=== PATIENT | female | born 1940 | race Caucasian/White ===

== ENCOUNTER 2016-07-29 07:26 | Day surgery (SDC) | payer MEDICARE ==
[2016-07-28 08:54] VITALS: BMI 48.2
[2016-07-29 07:52] VITALS: RESP 16; TEMP 97.9
[2016-07-29] MEDS ORDERED: LACTATED RINGERS 1,000 ML IV ONE (08:10)
[2016-07-29] MEDS ORDERED: LIDOCAINE 1% 20 ML VIAL (10MG/ML) FOR IV START INTRADERMA ONE (08:12)
[2016-07-29 08:17] LABS: Glucose,Whole Blood 193 mg/dL (75-99)
[2016-07-29] MEDS ORDERED: PROPOFOL 10 MG/ML 20 ML VIAL IV ONE (08:54)
[2016-07-29] MEDS ORDERED: fentaNYL (PF) 50 MCG/ML 2 ML AMP ONE (08:54)
[2016-07-29] MEDS ORDERED: LIDOCAINE 1% INJ 10MG/ML (20 ML MDV) ONE (08:54)
--- NOTE | 2016-07-29 09:27 | P.PCN ---
Date of Procedure: 07/29/16 Procedure(s) Performed: Procedure: Colonoscopy and polypectomy. Preoperative diagnosis: History of colon cancer and intermittent rectal bleeding. Postoperative diagnosis: 1. S/P right hemicolectomy for colon cancer with no evidence of recurrence at the anastomotic site. 2. Multiple small polyps snared but no large polyps or cancer. 3. Sigmoid diverticulosis with no evidence of acute diverticulitis or strictures. 4. Low-grade internal hemorrhoids without bleeding at the time of this exam. Preparation: HalfLytely prep. Sedation: Was provided by anesthesia. Brief clinical history: The patient is a 75-year-old female who was diagnosed with colon cancer in August of last year and underwent right hemicolectomy and did not require any additional therapy. The patient had intermittent bleeding per rectum since that time and frequent bowel movements. This evaluation is for screening for neoplasia, especially, since her preparation last year that was less than ideal and there were small/diminutive polyps that could not be addressed. Procedure: With the patient on her left lateral decubitus position and after informed consent and adequate sedation, the perianal area was inspected and it did not show any fissures or fistulas. There were no masses felt on digital rectal examination. The Olympus CFQ 160L video colonoscope was then inserted in the rectum and the usual fashion and advanced to the anastomotic site on the right colon. The patient had prior right hemicolectomy and there was no evidence of recurrence at the anastomotic site. There were 3 small polyps noted in the transverse colon which I snared and retrieved by suction and there was one small polyp in the distal sigmoid which was snared and retrieved by suction as well. There were no large polyps or cancer. Several diverticular orifices were seen scattered in the sigmoid with no evidence of acute diverticulitis or strictures. I retroflexed endoscope in the rectum before the endoscope was withdrawn. Low-grade internal hemorrhoids were noted but there was no evidence of bleeding. The patient tolerated the procedure well. Plan: The patient was reassured. Discussed dietary measures and local care for hemorrhoids. I anticipate repeating this exam in 2-3 years. I will keep you updated on her progress.
[2016-07-29 09:36] LABS: Glucose,Whole Blood 153 mg/dL (75-99)
[2016-07-29 09:39] VITALS: BP 127/65; PULSE 62
== END 2016-07-29 10:42 | disposition home or self-care (01) ==
LOC: ORWHC2ENDO 07:26
DX: Z12.11 Encounter for screening for malignant neoplasm of colon (principal); Z85.038 Personal history of other malignant neoplasm of large intestine; Z90.49 Acquired absence of other specified parts of digestive tract; D12.3 Benign neoplasm of transverse colon; D12.5 Benign neoplasm of sigmoid colon; K57.30 Diverticulosis of large intestine without perforation or abscess without bleeding; K64.8 Other hemorrhoids; Z87.19 Personal history of other diseases of the digestive system; E11.9 Type 2 diabetes mellitus without complications; I10 Essential (primary) hypertension; E78.5 Hyperlipidemia, unspecified; Z79.82 Long term (current) use of aspirin; Z79.4 Long term (current) use of insulin; Z79.84 Long term (current) use of oral hypoglycemic drugs; Z79.899 Other long term (current) drug therapy
CPT/HCPCS: 88305; 45385; J2001; J3010; J2704; 99153

== ENCOUNTER 2017-09-01 08:58 | Day surgery (SDC) | payer MEDICARE ==
[2017-08-29 12:27] VITALS: BMI 49.0
[~2017-09-01 08:58] MED LIST: LACTATED RINGERS 1,000 ML IV SCH; LIDOCAINE 1% 20 ML VIAL (10MG/ML) FOR IV START INTRADERMA PRN
[2017-09-01 09:14] VITALS: TEMP 97.6
[2017-09-01 09:24] LABS: Glucose,Whole Blood 130 mg/dL (75-99)
[2017-09-01] MEDS ORDERED: PROPOFOL 10 MG/ML 20 ML VIAL IV ONE (10:05)
[2017-09-01] MEDS ORDERED: LIDOCAINE 1% INJ 10MG/ML (20 ML MDV) ONE (10:05)
[2017-09-01] MEDS ORDERED: LACTATED RINGERS 1,000 ML IV ONE (10:05)
[2017-09-01 10:44] LABS: Glucose,Whole Blood 117 mg/dL (75-99)
--- NOTE | 2017-09-01 10:44 | P.PCN ---
Date of Procedure: 09/01/17 Procedure(s) Performed: Procedure: Colonoscopy. Preoperative diagnosis: History of colon cancer and polyps. Postoperative diagnosis: 1. S/P right hemicolectomy for colon cancer with no evidence of recurrence at the anastomotic site. 2. Sigmoid diverticulosis with no evidence of acute diverticulitis or strictures. Preparation: HalfLytely prep. Sedation: Was provided by anesthesia. Brief clinical history: The patient is a 76-year-old female who was diagnosed with colon cancer in August of 2015 and underwent right hemicolectomy and did not require any additional therapy. The patient had intermittent bleeding per rectum after that and diarrhea and his colonoscopy in July 2016 revealed sigmoid diverticulosis and small polyps but no evidence of cancer. Had hemorrhoids which were not bleeding. This evaluation is for screening for neoplasia. She has been doing well without diarrhea or bleeding. Procedure: With the patient on her left lateral decubitus position and after informed consent and adequate sedation, the perianal area was inspected and it did not show any fissures or fistulas. There were no masses felt on digital rectal examination. The Olympus CFQ 160L video colonoscope was then inserted in the rectum in the usual fashion and advanced to the anastomotic site on the right colon. The patient had prior right hemicolectomy and there was no evidence of recurrence at the anastomotic site. There were no polyps seen or cancer. Several diverticular orifices were seen scattered in the sigmoid with no evidence of acute diverticulitis or strictures. I retroflexed the endoscope in the rectum before the endoscope was withdrawn. The patient tolerated the procedure well. Plan: The patient was reassured. Discussed dietary measures. I anticipate repeating this exam in 3 years. I will keep you updated on her progress.
[2017-09-01 10:53] VITALS: BP 127/55; PULSE 72; RESP 18
== END 2017-09-01 11:25 | disposition home or self-care (01) ==
LOC: ORWHC2ENDO 08:58
DX: Z12.11 Encounter for screening for malignant neoplasm of colon (principal); K57.30 Diverticulosis of large intestine without perforation or abscess without bleeding; E11.9 Type 2 diabetes mellitus without complications; I10 Essential (primary) hypertension; E78.5 Hyperlipidemia, unspecified; J45.909 Unspecified asthma, uncomplicated; I48.91 Unspecified atrial fibrillation; G47.33 Obstructive sleep apnea (adult) (pediatric); Z85.038 Personal history of other malignant neoplasm of large intestine; Z79.82 Long term (current) use of aspirin; Z79.4 Long term (current) use of insulin; Z86.010 Personal history of colon polyps; Z90.49 Acquired absence of other specified parts of digestive tract; Z79.899 Other long term (current) drug therapy; Z98.0 Intestinal bypass and anastomosis status
CPT/HCPCS: J2001; J2704; G0105

== ENCOUNTER 2020-10-06 08:55 | Day surgery (SDC) | payer MEDICARE ==
[2020-10-02 15:36] VITALS: BMI 55.6
[~2020-10-06 08:55] MED LIST changes: -LACTATED RINGERS 1,000 ML IV SCH; +LIDOCAINE 1% (10MG/ML) FOR IV START INTRADERMA PRN; -LIDOCAINE 1% 20 ML VIAL (10MG/ML) FOR IV START INTRADERMA PRN
[2020-10-06] MEDS: LACTATED RINGERS 1,000 ML IV SCH ×2 (09:30→10:33)
[2020-10-06 09:45] LABS: Glucose,Whole Blood 99 mg/dL (75-99)
[2020-10-06 09:51] VITALS: TEMP 97.2
[2020-10-06] MEDS ORDERED: PROPOFOL 10 MG/ML 20 ML VIAL IV ONE (10:34)
--- NOTE | 2020-10-06 10:55 | P.PCN ---
Date of Procedure: 10/06/20 Procedure(s) Performed: BRIEF HISTORY: Patient is a 80-year-old pleasant white female scheduled for an elective colonoscopy as a part of surveillance of prior history of colon cancer diagnosed in August 2015 and is status post right hemicolectomy. Her last colonoscopy was 3 years ago. PROCEDURE PERFORMED: Colonoscopy biopsy and snare polypectomy. PREOPERATIVE DIAGNOSIS: History of colon cancer in 2016. IV sedation per Anesthesia. PROCEDURE: After informed consent was obtained, the patient, was brought into the endoscopy unit. IV sedation was administered by Anesthesia under continuous monitoring. Digital rectal examination was normal. Initially the Olympus CF-160 flexible video colonoscope was then inserted in the rectum, gradually advanced into the right colon without any difficulty. The ileocolonic anastomosis was visualized and appeared normal. Mucosa of the transverse colon, appeared normal. In the descending colon there was a 2 mm polyp that was removed by cold biopsy. In the sigmoid colon there was a 5 mm and 6 mm polyps removed by snare polypectomy. Scattered left sided diverticulosis seen. Rest of the descending colon, sigmoid colon, and rectum appeared normal. Retroflexion was performed in the rectum and no lesions were seen. The patient tolerated the procedure well. IMPRESSION: 2 mm descending colon polyp status post removal by cold biopsy 5 mm and 6 mm sigmoid colon polyp status post snare polypectomy Scattered sigmoidal diverticulosis RECOMMENDATIONS: Findings of this examination were discussed with the patient as well as a family. She was advised to follow with the biopsy results. If the biopsies show adenoma she can have a repeat colonoscopy in 3 years.
[2020-10-06 11:21] VITALS: BP 138/74; PULSE 90; RESP 20
== END 2020-10-06 11:50 | disposition home or self-care (01) ==
LOC: ORWHC2ENDO 08:55
PROVIDERS: ATTEND Internal Medicine Gastroenterology
DX: Z12.11 Encounter for screening for malignant neoplasm of colon (principal); D12.4 Benign neoplasm of descending colon; D12.5 Benign neoplasm of sigmoid colon; K57.30 Diverticulosis of large intestine without perforation or abscess without bleeding; Z85.038 Personal history of other malignant neoplasm of large intestine; E11.9 Type 2 diabetes mellitus without complications; K08.89 Other specified disorders of teeth and supporting structures; I11.0 Hypertensive heart disease with heart failure; I50.9 Heart failure, unspecified; I48.91 Unspecified atrial fibrillation; E78.5 Hyperlipidemia, unspecified; J45.909 Unspecified asthma, uncomplicated; G47.33 Obstructive sleep apnea (adult) (pediatric); F41.9 Anxiety disorder, unspecified; F32.9 Major depressive disorder, single episode, unspecified; E66.9 Obesity, unspecified; Z98.0 Intestinal bypass and anastomosis status; Z79.899 Other long term (current) drug therapy; Z79.82 Long term (current) use of aspirin; Z90.49 Acquired absence of other specified parts of digestive tract; Z88.8 Allergy status to other drugs, medicaments and biological substances; Z87.891 Personal history of nicotine dependence; Z79.4 Long term (current) use of insulin; Z68.43 Body mass index [BMI] 50.0-59.9, adult
CPT/HCPCS: 88305; 45380; 45385; J2704

== ENCOUNTER 2020-12-04 18:35 | Inpatient (IN) | payer MEDICARE ==
--- NOTE | 2020-12-04 19:09 | ED ---
General Adult HPI - General Chief complaint: Shortness of Breath Stated complaint: sob Time Seen by Provider: 12/04/20 18:49 Source: patient, RN notes reviewed, old records reviewed Mode of arrival: ambulatory Limitations: no limitations - History of Present Illness Initial comments: 80-year-old female with history of CHF, chronic kidney disease presenting with weight gain, increased dyspnea. Symptoms have progressed over the past one month, patient was admitted at an outside hospital with CHF and chronic kidney disease. She is currently on Bumex. She's had 8-10 pound weight gain recently and his had increased lower extremity edema as well as increased dyspnea. No fevers. Minimal central chest discomfort, no central chest pain. - Related Data Home Medications Medication Instructions Recorded Confirmed Aspirin [Adult Low Dose Aspirin EC] 81 mg PO DAILY 07/28/16 12/04/20 Atorvastatin [Lipitor] 20 mg PO DAILY 07/28/16 12/04/20 Losartan [Cozaar] 50 mg PO DAILY 07/28/16 12/04/20 sitaGLIPtin [Januvia] 50 mg PO DAILY 07/28/16 12/04/20 Amitriptyline HCl 25 mg PO HS 10/02/20 12/04/20 DULoxetine HCL [Cymbalta] 60 mg PO HS 10/02/20 12/04/20 Echinacea Root/Goldenseal Root 1 cap PO HS 10/02/20 12/04/20 [Echinac-Goldenseal 250-250 mg] Albuterol Sulfate [Ventolin HFA] 2 puff INHALATION RT-Q6H PRN 12/04/20 12/04/20 Bumetanide 2 mg PO DAILY 12/04/20 12/04/20 Folic Acid 0.8 mg PO HS 12/04/20 12/04/20 Glucos Sul 2Kcl/MSM/Chond/C/Mn 1 cap PO HS 12/04/20 12/04/20 [Glucosamine Chondroitin Cap] Insulin NPH Hum/Reg Insulin Hm 48 units SQ HS 12/04/20 12/04/20 [Novolin 70-30 Flexpen] Insulin NPH Hum/Reg Insulin Hm 66 units SQ DAILY 12/04/20 12/04/20 [Novolin 70-30 Flexpen] Oxybutynin ER [Ditropan Xl] 15 mg PO DAILY 12/04/20 12/04/20 Qft-Zqlu-Ifoym Acid 1 cap PO HS 12/04/20 12/04/20 [-U Capsule (formulary)] Allergies Allergy/AdvReac Type Severity Reaction Status Date / Time beta blockers Allergy Hallucinati Uncoded 12/04/20 19:59 ons Review of Systems ROS Statement: Those systems with pertinent positive or pertinent negative responses have been documented in the HPI. ROS Other: All systems not noted in ROS Statement are negative. Past Medical History Past Medical History: Atrial Fibrillation, Asthma, Cancer, Heart Failure, Diabetes Mellitus, GI Bleed, Hyperlipidemia, Hypertension, Memory Impairment, Osteoarthritis (OA), Sleep Apnea/CPAP/BIPAP Additional Past Medical History / Comment(s): Hx chronic bronchitis, urinary incontinence, hx colon cancer 2017. Recently having blood in stools. "Prone to kidney infections". "Severe left leg pain, affects mobility, some pain in right leg as well." Experiences extrene dizziness when getting up, has had many falls ." No CPAP use. History of Any Multi-Drug Resistant Organisms: None Reported Past Surgical History: Appendectomy, Bowel Resection, Cholecystectomy Past Anesthesia/Blood Transfusion Reactions: Postoperative Nausea & Vomiting ( PONV) Additional Past Anesthesia/Blood Transfusion Reaction / Comment(s): Family hx PONV as well. Past Psychological History: Anxiety, Depression Smoking Status: Former smoker Past Alcohol Use History: None Reported Past Drug Use History: None Reported - Past Family History Daughter(s) Family Medical History: Cancer Additional Family Medical History / Comment(s): Breast cancer. Sister(s) Family Medical History: Cancer Additional Family Medical History / Comment(s): 1 sister had breast cancer and 1 sister had uterine cancer. General Exam Limitations: no limitations General appearance: alert, in distress Head exam: Present: atraumatic, normocephalic Eye exam: Present: normal appearance, PERRL ENT exam: Present: normal exam Neck exam: Present: normal inspection. Absent: tenderness, meningismus Respiratory exam: Present: respiratory distress, rales, decreased breath sounds Cardiovascular Exam: Present: regular rate, normal rhythm GI/Abdominal exam: Present: soft. Absent: distended, tenderness Extremities exam: Present: pedal edema Neurological exam: Present: alert, oriented X3, CN II-XII intact. Absent: motor sensory deficit Psychiatric exam: Present: normal affect, normal mood Skin exam: Present: warm, dry Course Vital Signs 12/04/20 12/04/20 12/04/20 18:41 19:11 21:44 Temperature 98.6 F Pulse Rate 74 71 Respiratory 22 21 16 Rate Blood Pressure 134/40 138/36 O2 Sat by Pulse 96 96 Oximetry EKG Findings - EKG Comments: EKG Findings:: EKG: Normal sinus rhythm, no ST segment elevation, rate of 78, NJ interval 192, QRS duration 70, QTC 435, no ST segment elevation. Medical Decision Making - Medical Decision Making 80-year-old female with worsening dyspnea, worsening lower extremity edema and fluid retention with weight gain. Patient has significant bilateral lower extremity edema. Case discussed with Dr. Freed who will admit both nephrology and cardiology placed on consult. - Lab Data Result diagrams: 12/04/20 19:13 12/04/20 19:13 Lab Results 12/04/20 12/04/20 12/04/20 Range/Units 19:13 19:13 19:13 WBC 6.4 (3.8-10.6) k/uL RBC 3.35 L (3.80-5.40) m/uL Hgb 11.5 (11.4-16.0) gm/dL Hct 33.0 L (34.0-46.0) % MCV 98.5 (80.0-100.0) fL MCH 34.2 (25.0-35.0) pg MCHC 34.8 (31.0-37.0) g/dL RDW 13.5 (11.5-15.5) % Plt Count 200 (150-450) k/uL MPV 6.7 Neutrophils % 71 % Lymphocytes % 17 % Monocytes % 6 % Eosinophils % 3 % Basophils % 1 % Neutrophils # 4.5 (1.3-7.7) k/uL Lymphocytes # 1.1 (1.0-4.8) k/uL Monocytes # 0.4 (0-1.0) k/uL Eosinophils # 0.2 (0-0.7) k/uL Basophils # 0.0 (0-0.2) k/uL PT 10.8 (9.0-12.0) sec INR 1.0 (<1.2) APTT 24.4 (22.0-30.0) sec Sodium 133 L (137-145) mmol/L Potassium 4.8 (3.5-5.1) mmol/L Chloride 96 L (98-107) mmol/L Carbon Dioxide 30 (22-30) mmol/L Anion Gap 7 mmol/L BUN 38 H (7-17) mg/dL Creatinine 1.42 H (0.52-1.04) mg/dL Est GFR (CKD-EPI)AfAm 41 (>60 ml/min/1.73 sqM) Est GFR (CKD-EPI)NonAf 36 (>60 ml/min/1.73 sqM) Glucose 190 H (74-99) mg/dL Calcium 9.2 (8.4-10.2) mg/dL Total Bilirubin 0.8 (0.2-1.3) mg/dL AST 77 H (14-36) U/L ALT 35 H (4-34) U/L Alkaline Phosphatase 118 (38-126) U/L Troponin I (0.000-0.034) ng/mL NT-Pro-B Natriuret Pep pg/mL Total Protein 7.6 (6.3-8.2) g/dL Albumin 3.8 (3.5-5.0) g/dL 12/04/20 12/04/20 Range/Units 19:13 19:19 WBC (3.8-10.6) k/uL RBC (3.80-5.40) m/uL Hgb (11.4-16.0) gm/dL Hct (34.0-46.0) % MCV (80.0-100.0) fL MCH (25.0-35.0) pg MCHC (31.0-37.0) g/dL RDW (11.5-15.5) % Plt Count (150-450) k/uL MPV Neutrophils % % Lymphocytes % % Monocytes % % Eosinophils % % Basophils % % Neutrophils # (1.3-7.7) k/uL Lymphocytes # (1.0-4.8) k/uL Monocytes # (0-1.0) k/uL Eosinophils # (0-0.7) k/uL Basophils # (0-0.2) k/uL PT (9.0-12.0) sec INR (<1.2) APTT (22.0-30.0) sec Sodium (137-145) mmol/L Potassium (3.5-5.1) mmol/L Chloride (98-107) mmol/L Carbon Dioxide (22-30) mmol/L Anion Gap mmol/L BUN (7-17) mg/dL Creatinine (0.52-1.04) mg/dL Est GFR (CKD-EPI)AfAm (>60 ml/min/1.73 sqM) Est GFR (CKD-EPI)NonAf (>60 ml/min/1.73 sqM) Glucose (74-99) mg/dL Calcium (8.4-10.2) mg/dL Total Bilirubin (0.2-1.3) mg/dL AST (14-36) U/L ALT (4-34) U/L Alkaline Phosphatase (38-126) U/L Troponin I <0.012 (0.000-0.034) ng/mL NT-Pro-B Natriuret Pep 431 pg/mL Total Protein (6.3-8.2) g/dL Albumin (3.5-5.0) g/dL Disposition Clinical Impression: Congestive heart failure, Fluid retention in legs, Chronic kidney disease Disposition: ADMITTED IP TO THIS [facility] Condition: Stable Is patient prescribed a controlled substance at d/c from ED?: No Referrals: Reynaldo Nielson DO [Primary Care Provider] - 1-2 days Decision to Admit Reason: Admit from EC Decision Date: 12/04/20 Decision Time: 22:03
[2020-12-04 19:17] LABS: Basophils % (A) 1 %; Eosinophils # (A) 0.2 k/uL (0-0.7); Eosinophils % (A) 3 %; HGB 11.5 gm/dL (11.4-16.0); Lymphocytes # (A) 1.1 k/uL (1.0-4.8); Lymphocytes % (A) 17 %; MCH 34.2 pg (25.0-35.0); MCHC 34.8 g/dL (31.0-37.0); MCV 98.5 fL (80.0-100.0); Mean Platelet Volume 6.7; Monocytes # (A) 0.4 k/uL (0-1.0); Monocytes % (A) 6 %; Neutrophils # (A) 4.5 k/uL (1.3-7.7); Neutrophils % (A) 71 %; Platelet Count 200 k/uL (150-450); RBC 3.35 m/uL (3.80-5.40); RDW 13.5 % (11.5-15.5); WBC 6.4 k/uL (3.8-10.6)
[2020-12-04 19:25] LABS: Partial Thromboplastin Time 24.4 sec (22.0-30.0); Prothrombin Time 10.8 sec (9.0-12.0)
[2020-12-04 19:28] LABS: Albumin 3.8 g/dL (3.5-5.0); Calcium 9.2 mg/dL (8.4-10.2); Potassium 4.8 mmol/L (3.5-5.1); Total Bilirubin 0.8 mg/dL (0.2-1.3); Total Protein 7.6 g/dL (6.3-8.2)
--- NOTE | 2020-12-04 20:00 | XR ---
EXAMINATION: XR chest 2V DATE AND TIME: 12/04/2020 7:34 PM CLINICAL INDICATION: PHH; difficulty breathing TECHNIQUE: Departmental protocol COMPARISON: None FINDINGS: The overlying soft tissues are prominent. The lungs appear to be clear. The pleural spaces are negative. The cardiac silhouette is not enlarged. The remainder of the mediastinal silhouette is unremarkable. The skeletal structures and soft tissues are negative for acute findings. IMPRESSION: No definite acute radiographic process.
[2020-12-04] MEDS ORDERED: FUROSEMIDE 10 MG/ML 10 ML VIAL IV STA (20:22)
[2020-12-04] MEDS ORDERED: NALOXONE 0.4 MG/ML 1 ML VIAL IV PRN (22:00)
[2020-12-04 22:06] LABS: Appearance,Urine Cloudy (Clear); Bacteria,Urine Rare /hpf; Bilirubin,Urine Negative (Negative); Blood,Urine Negative (Negative); Color,Urine Yellow; Glucose,Urine (UA) Negative (Negative); Ketones,Urine Negative (Negative); Leukocyte Esterase,Urine Moderate (Negative); Nitrite,Urine Negative (Negative); Protein,Urine Negative (Negative); RBC,Urine <1 /hpf (0-5); Specific Gravity,Urine 1.013 (1.001-1.035); Squamous Epithelial Cell,Urine 6 /hpf (0-4); Urobilinogen,Urine <2.0 mg/dL (<2.0); WBC,Urine 10 /hpf (0-5)
[2020-12-04 22:40] LABS: Glucose,Whole Blood 198 mg/dL (75-99)
[2020-12-04] MEDS ORDERED: AMITRIPTYLINE HCL 25 MG TAB PO SCH (22:45)
[2020-12-05] MEDS: DULoxetine HCL 60 MG CAPSULE.DR PO SCH ×2 (00:01→20:40)
[2020-12-05] MEDS: AMITRIPTYLINE HCL 25 MG TAB PO SCH ×2 (00:02→20:39)
[2020-12-05] MEDS: ASPIRIN 81 MG PO SCH (07:46)
[2020-12-05] MEDS: INSULIN ASPART (NovoLOG) 100 UNIT/ML VIAL SQ SCH ×4 (07:46→20:39)
[2020-12-05] MEDS: LOSARTAN 50 MG TAB PO SCH (07:46)
[2020-12-05] MEDS: ATORVASTATIN 20 MG TAB PO SCH (07:46)
[2020-12-05 08:02] LABS: Glucose,Whole Blood 188 mg/dL (75-99)
--- NOTE | 2020-12-05 11:30 | P.NPCON ---
History of Present Illness - Reason for Consult acute renal failure, chronic renal failure - History of Present Illness Reason for consultation: Acute kidney injury on chronic kidney disease History of present illness: Patient is a 80-year-old female seen in renal consultation for acute kidney injury on chronic kidney disease. Patient's creatinine in October and November has been in the range of 1.4-1.7. It is 1.42 today. Patient presented to the hospital with worsening shortness of breath as well as edema. Patient has gained about 8 pounds in the last 1 week. She admits to edema in her lower extremity. Patient states her right lower extremity was weeping. She denies any fever or chills. Denies use of nonsteroidals. No vomiting or diarrhea. Oral intake has been fair. Has been voiding. No hematuria or dysuria. She does have history of diabetes. Denies family history of renal disease. No history of coronary artery disease. Urinalysis is benign. Hemodynamically stable. No chest pain. Vital signs are stable. General: The patient appeared well nourished and normally developed. HEENT: Head exam is unremarkable. Neck is without jugular venous distension. LUNGS: Breath sounds decreased. HEART: Rate and Rhythm are regular. ABDOMEN: Soft, obese. EXTREMITITES: 1-2+ edema with chronic changes noted. Past Medical History Past Medical History: Atrial Fibrillation, Asthma, Cancer, Heart Failure, Diabetes Mellitus, GI Bleed, Hyperlipidemia, Hypertension, Memory Impairment, Osteoarthritis (OA), Sleep Apnea/CPAP/BIPAP Additional Past Medical History / Comment(s): Hx chronic bronchitis, urinary incontinence, hx colon cancer 2017. Recently having blood in stools. "Prone to kidney infections". "Severe left leg pain, affects mobility, some pain in right leg as well." Experiences extrene dizziness when getting up, has had many falls." No CPAP use. History of Any Multi-Drug Resistant Organisms: None Reported Past Surgical History: Appendectomy, Bowel Resection, Cholecystectomy Past Anesthesia/Blood Transfusion Reactions: Postoperative Nausea & Vomiting (PONV) Additional Past Anesthesia/Blood Transfusion Reaction / Comment(s): Family hx PONV as well. Past Psychological History: Anxiety, Depression Smoking Status: Former smoker Past Alcohol Use History: None Reported Past Drug Use History: None Reported - Past Family History Daughter(s) Family Medical History: Cancer Additional Family Medical History / Comment(s): Breast cancer. Sister(s) Family Medical History: Cancer Additional Family Medical History / Comment(s): 1 sister had breast cancer and 1 sister had uterine cancer. Medications and Allergies Home Medications Medication Instructions Recorded Confirmed Type Aspirin [Adult Low Dose Aspirin EC] 81 mg PO DAILY 07/28/16 12/04/20 History Atorvastatin [Lipitor] 20 mg PO DAILY 07/28/16 12/04/20 History Losartan [Cozaar] 50 mg PO DAILY 07/28/16 12/04/20 History sitaGLIPtin [Januvia] 50 mg PO DAILY 07/28/16 12/04/20 History Amitriptyline HCl 25 mg PO HS 10/02/20 12/04/20 History DULoxetine HCL [Cymbalta] 60 mg PO HS 10/02/20 12/04/20 History Echinacea Root/Goldenseal Root 1 cap PO HS 10/02/20 12/04/20 History [Echinac-Goldenseal 250-250 mg] Albuterol Sulfate [Ventolin HFA] 2 puff INHALATION RT-Q6H PRN 12/04/20 12/04/20 History Bumetanide 2 mg PO DAILY 12/04/20 12/04/20 History Folic Acid 0.8 mg PO HS 12/04/20 12/04/20 History Glucos Sul 2Kcl/MSM/Chond/C/Mn 1 cap PO HS 12/04/20 12/04/20 History [Glucosamine Chondroitin Cap] Insulin NPH Hum/Reg Insulin Hm 48 units SQ HS 12/04/20 12/04/20 History [Novolin 70-30 Flexpen] Insulin NPH Hum/Reg Insulin Hm 66 units SQ DAILY 12/04/20 12/04/20 History [Novolin 70-30 Flexpen] Oxybutynin ER [Ditropan Xl] 15 mg PO DAILY 12/04/20 12/04/20 History Flu-Styr-Mkcsp Acid 1 cap PO HS 12/04/20 12/04/20 History [-U Capsule (formulary)] Allergies Allergy/AdvReac Type Severity Reaction Status Date / Time beta blockers Allergy Hallucinati Uncoded 12/04/20 19:59 ons Physical Exam Vitals: Vital Signs Temp Pulse Resp BP Pulse Ox 12/05/20 07:34 97.9 F 80 20 137/46 93 L 12/05/20 01:19 78 18 135/48 96 12/04/20 21:44 71 16 138/36 96 12/04/20 19:11 21 12/04/20 18:41 98.6 F 74 22 134/40 96 Intake and Output 12/04/20 12/05/20 12/05/20 22:59 06:59 14:59 Other: Weight 127.459 kg Results - Lab Results Most recent lab results Calcium 9.2 mg/dL (8.4-10.2) 12/04/20 19:13 12/04/20 19:13 12/04/20 19:13 Assessment and Plan Plan: Assessment: 1. HOSEA vs CKD - cr 1.4-1.7 in october/november 2020. UA benign. 2. Volume overload. 3. Diabetes. 4. Benign hypertension. Stable. Plan: Add IV lasix 40 mg bid. Check renal ultrasound. Avoid nephrotoxins. Low salt diet. Continue to monitor renal function and UO. Cardiology reccs rianna. Thank you for the consultation. I will continue to follow the patient with you during her hospital stay.
[2020-12-05 11:41] LABS: Glucose,Whole Blood 183 mg/dL (75-99)
[2020-12-05] MEDS ORDERED: FUROSEMIDE 10 MG/ML 4 ML VIAL IV STA (12:02)
--- NOTE | 2020-12-05 13:03 | US ---
EXAMINATION TYPE: US kidneys/renal and bladder DATE OF EXAM: 12/05/2020 COMPARISON: NONE CLINICAL HISTORY: yahaira. EXAM MEASUREMENTS: Right Kidney: 9.4 x 4.0 x 4.8 cm Left Kidney: 10.3 x 4.8 x 4.9 cm Morbidly obese patient, technically difficult study. Right Kidney: No hydronephrosis or masses seen, lobular contour Left Kidney: No hydronephrosis or masses seen Bladder: Limited. Not fully distended no nephrolithiasis. IMPRESSION: 1. Cortical thinning correlate for chronic medical renal disease.:
[2020-12-05] MEDS ORDERED: ALBUTEROL HFA INHALER INHALATION PRN (14:31)
[2020-12-05 17:25] LABS: Glucose,Whole Blood 169 mg/dL (75-99)
--- NOTE | 2020-12-05 18:02 | P.HPIM ---
History of Present Illness H&P Date: 12/05/20 Chief Complaint: Shortness of breath 80-year-old female with history of CHF, chronic kidney disease presenting with weight gain, increased dyspnea. Symptoms have progressed over the past one month, patient was admitted at an outside hospital with CHF and chronic kidney disease. She is currently on Bumex. She's had 8-10 pound weight gain recently and his had increased lower extremity edema as well as increased dyspnea. No fevers. Minimal central chest discomfort, no central chest pain. Workup in ED including an EKG reveals normal sinus rhythm, no ST segment elevation; labs reveal sodium of 133, potassium 4.8, BUN 38 with creatinine of 1.4 to and glucose 190; AST/ALT 77/35 and BNP of 431 Patient is admitted for further evaluation of CHF and acute on chronic kidney disease Review of Systems - Constitutional General appearance: Present: average body habitus, cooperative, no acute distress - EENT Eyes: Present: anicteric sclerae, EOMI, PERRLA, normal appearance ENT: Present: hearing grossly normal, normal oropharynx Ears: bilateral: normal - Neck Neck: Present: normal ROM. Absent: lymphadenopathy, rigidity, thyromegaly Carotids: negative: bruit present Thyroid: bilateral: normal size, negative: enlarged, nodule - Respiratory Respiratory: bilateral: CTA, negative: rales, rhonchi, wheezing - Cardiovascular Rhythm: regular Heart sounds: normal: S1, S2 Abnormal Heart Sounds: Absent: systolic murmur, diastolic murmur - Gastrointestinal General gastrointestinal: Present: normal bowel sounds, soft. Absent: distended, organomegaly, tenderness - Genitourinary Genitourinary Comment(s): deferred - Integumentary Integumentary: Present: normal turgor. Absent: jaundiced, rash, ulcer - Neurologic Neurologic: Present: CNII-XII intact. Absent: focal deficits - Musculoskeletal Musculoskeletal: Present: gait normal, strength equal bilaterally - Psychiatric Psychiatric: Present: A&O x's 3, appropriate affect, intact judgment & insight Past Medical History Past Medical History: Atrial Fibrillation, Asthma, Cancer, Heart Failure, Diabetes Mellitus, GI Bleed, Hyperlipidemia, Hypertension, Memory Impairment, Osteoarthritis (OA), Renal Disease, Skin Disorder, Sleep Apnea/CPAP/BIPAP Additional Past Medical History / Comment(s): Pt recently admitted to [facility] with R lower leg cellulitis, CKD stge IV and CHF. Other hx: Afib once associated with beta josafat, IDDM type II, CKD III-IV, "prone to" polynephritis, UTIs, colon cancer with resection, past pneumonias, chronic bronchitits, lower GI bleed, colon polyps, diverticular disease, small hiatal hernia, bilateral leg pain especially L leg, bilateral lower leg/pedal edema, gait dysturbance, vertigo, FALLS, LACEY-no device, "lump" present L lower leg, History of Any Multi-Drug Resistant Organisms: None Reported Past Surgical History: Appendectomy, Bowel Resection, Breast Surgery, Cholecystectomy Additional Past Surgical History / Comment(s): EGD, colonoscopies/polypectomies, L breast benign biopsy. Past Anesthesia/Blood Transfusion Reactions: Postoperative Nausea & Vomiting (PONV) Additional Past Anesthesia/Blood Transfusion Reaction / Comment(s): Family hx PONV as well. Smoking Status: Former smoker - Past Family History Daughter(s) Family Medical History: Cancer Additional Family Medical History / Comment(s): Breast cancer. Sister(s) Family Medical History: Cancer Additional Family Medical History / Comment(s): 1 sister had breast cancer and 1 sister had uterine cancer. Mother Family Medical History: Diabetes Mellitus Additional Family Medical History / Comment(s): heart problems Father Additional Family Medical History / Comment(s): heart problems Medications and Allergies Home Medications Medication Instructions Recorded Confirmed Type Aspirin [Adult Low Dose Aspirin EC] 81 mg PO DAILY 07/28/16 12/04/20 History Atorvastatin [Lipitor] 20 mg PO DAILY 07/28/16 12/04/20 History Losartan [Cozaar] 50 mg PO DAILY 07/28/16 12/04/20 History sitaGLIPtin [Januvia] 50 mg PO DAILY 07/28/16 12/04/20 History DULoxetine HCL [Cymbalta] 60 mg PO HS 10/02/20 12/04/20 History Echinacea Root/Goldenseal Root 1 cap PO HS 10/02/20 12/04/20 History [Echinac-Goldenseal 250-250 mg] RX: Amitriptyline HCl 25 mg PO HS 10/02/20 12/04/20 History Albuterol Sulfate [Ventolin HFA] 2 puff INHALATION RT-Q6H PRN 12/04/20 12/04/20 History Glucos Sul 2Kcl/MSM/Chond/C/Mn 1 cap PO HS 12/04/20 12/04/20 History [Glucosamine Chondroitin Cap] Insulin NPH Hum/Reg Insulin Hm 48 units SQ HS 12/04/20 12/04/20 History [Novolin 70-30 Flexpen] Insulin NPH Hum/Reg Insulin Hm 66 units SQ DAILY 12/04/20 12/04/20 History [Novolin 70-30 Flexpen] Oxybutynin ER [Ditropan Xl] 15 mg PO DAILY 12/04/20 12/04/20 History Svp-Wdyb-Tqguh Acid 1 cap PO HS 12/04/20 12/04/20 History [-U Capsule (formulary)] RX: Bumetanide 2 mg PO DAILY 12/04/20 12/04/20 History RX: Folic Acid 0.8 mg PO HS 12/04/20 12/04/20 History Allergies Allergy/AdvReac Type Severity Reaction Status Date / Time beta blockers Allergy Hallucinati Uncoded 12/04/20 19:59 ons Physical Exam Vitals: Vital Signs Temp Pulse Resp BP Pulse Ox 12/05/20 12:11 89 16 141/53 97 12/05/20 07:34 97.9 F 80 20 137/46 93 L 12/05/20 01:19 78 18 135/48 96 12/04/20 21:44 71 16 138/36 96 12/04/20 19:11 21 12/04/20 18:41 98.6 F 74 22 134/40 96 Intake and Output 12/04/20 12/05/20 12/05/20 22:59 06:59 14:59 Other: Weight 127.459 kg 127.459 kg Results CBC & Chem 7: 12/04/20 19:13 12/04/20 19:13 Labs: Abnormal Lab Results - Last 24 Hours (Table) 12/04/20 12/04/20 12/04/20 Range/Units 19:13 19:13 21:52 RBC 3.35 L (3.80-5.40) m/uL Hct 33.0 L (34.0-46.0) % Sodium 133 L (137-145) mmol/L Chloride 96 L (98-107) mmol/L BUN 38 H (7-17) mg/dL Creatinine 1.42 H (0.52-1.04) mg/dL Glucose 190 H (74-99) mg/dL POC Glucose (mg/dL) (75-99) mg/dL AST 77 H (14-36) U/L ALT 35 H (4-34) U/L Urine Appearance Cloudy H (Clear) Ur Leukocyte Esterase Moderate H (Negative) Urine WBC 10 H (0-5) /hpf Ur Squamous Epith Cells 6 H (0-4) /hpf Urine Bacteria Rare H (None) /hpf 12/04/20 12/05/20 12/05/20 Range/Units 22:39 07:42 11:33 RBC (3.80-5.40) m/uL Hct (34.0-46.0) % Sodium (137-145) mmol/L Chloride (98-107) mmol/L BUN (7-17) mg/dL Creatinine (0.52-1.04) mg/dL Glucose (74-99) mg/dL POC Glucose (mg/dL) 198 H 188 H 183 H (75-99) mg/dL AST (14-36) U/L ALT (4-34) U/L Urine Appearance (Clear) Ur Leukocyte Esterase (Negative) Urine WBC (0-5) /hpf Ur Squamous Epith Cells (0-4) /hpf Urine Bacteria (None) /hpf Thrombosis Risk Factor Assmnt - Choose All That Apply Any of the Below Risk Factors Present?: Yes Each Factor Represents 1 point: Heart failure (<1month), Medical pt on bed rest, Obesity (BMI >25), Swollen legs (current) Other Risk Factors: Yes Each Risk Factor Represents 2 Points: Malignancy Each Risk Factor Represents 3 Points: Age 75 years or older Other congenital or acquired thrombophilia - If yes, enter type in comment: No Thrombosis Risk Factor Assessment Total Risk Factor Score: 9 Thrombosis Risk Factor Assessment Level: High Risk Assessment and Plan Assessment: 1. Acute exacerbation CHF - Patient is placed on diuretics in form of Lasix 40 mg IV every 12 hours; we will monitor strict MADELEINE's, daily weights, renal function and lites; low-salt and fluid restricted diet; consult cardiology 2. Acute on chronic kidney disease; hold off on IV fluid hydration due to CHF; we will monitor strict MADELEINE's, daily weights, renal function and electrolytes; avoid nephrotoxins and hypotension 3. Transaminitis; possible passive congestion due to CHF; we will monitor liver enzymes closely and plan to order ultrasound of liver if continue to trend up 4. Hyperglycemia/diabetes mellitus controlled with insulin; we will resume home dose of insulin 7030 and monitor Accu-Cheks before meals and at bedtime with insulin sliding scale 5. Hypertension; losartan 50 mg by mouth daily 6. Hyperlipidemia; Lipitor 20 mg by mouth daily 7. Sleep apnea; uses CPAP at home DVT prophylaxis; SCDs/subcu heparin CODE STATUS; full code
[2020-12-05 19:44] LABS: Glucose,Whole Blood 188 mg/dL (75-99)
[2020-12-05] MEDS: HEPARIN SODIUM,PORCINE/PF 5,000 UNIT/0.5 ML SYRINGE SQ SCH (20:39)
[2020-12-05] MEDS: FUROSEMIDE 10 MG/ML 4 ML VIAL IV SCH (20:40)
[2020-12-05] MEDS: FOLIC ACID 1 MG TAB PO SCH (20:40)
[2020-12-05] MEDS: INSULN ASP PRT/INSULIN ASPART 100 UNIT/ML 10 ML VIAL SQ SCH (20:40)
[2020-12-05] MEDS ORDERED: DULoxetine HCL 60 MG CAPSULE.DR PO SCH (21:00)
[2020-12-05] MEDS ORDERED: AMITRIPTYLINE HCL 25 MG TAB PO SCH (21:00)
[2020-12-06 05:55] LABS: Basophils % (A) 1 %; Eosinophils # (A) 0.1 k/uL (0-0.7); Eosinophils % (A) 3 %; HCT 34.4 % (34.0-46.0); HGB 11.4 gm/dL (11.4-16.0); Lymphocytes # (A) 1.3 k/uL (1.0-4.8); Lymphocytes % (A) 24 %; MCH 33.4 pg (25.0-35.0); MCHC 33.2 g/dL (31.0-37.0); MCV 100.6 fL (80.0-100.0); Macrocytosis Slight; Mean Platelet Volume 7.1; Monocytes # (A) 0.5 k/uL (0-1.0); Monocytes % (A) 8 %; Neutrophils # (A) 3.4 k/uL (1.3-7.7); Neutrophils % (A) 62 %; Platelet Count 163 k/uL (150-450); RBC 3.42 m/uL (3.80-5.40); RDW 13.6 % (11.5-15.5); WBC 5.5 k/uL (3.8-10.6)
[2020-12-06 07:28] LABS: Glucose,Whole Blood 115 mg/dL (75-99)
[2020-12-06] MEDS: ASPIRIN 81 MG PO SCH (07:39)
[2020-12-06] MEDS: ATORVASTATIN 20 MG TAB PO SCH (07:39)
[2020-12-06] MEDS: LOSARTAN 50 MG TAB PO SCH (07:39)
[2020-12-06] MEDS: HEPARIN SODIUM,PORCINE/PF 5,000 UNIT/0.5 ML SYRINGE SQ SCH ×2 (07:39→20:27)
[2020-12-06] MEDS: FUROSEMIDE 10 MG/ML 4 ML VIAL IV SCH ×2 (07:39→20:28)
[2020-12-06] MEDS: INSULIN ASPART (NovoLOG) 100 UNIT/ML VIAL SQ SCH ×4 (07:40→20:27)
[2020-12-06] MEDS: OXYBUTYNIN 15 MG TAB.ER.24 PO SCH (07:40)
[2020-12-06] MEDS: INSULN ASP PRT/INSULIN ASPART 100 UNIT/ML 10 ML VIAL SQ SCH ×2 (07:57→20:27)
--- NOTE | 2020-12-06 09:01 | P.PN ---
Subjective patient is seen in follow-up for acute kidney injury on chronic kidney disease. Maintained on IV Lasix. Good urine output. Hemodynamically stable. No chest pain or shortness of breath. Vital signs are stable. General: The patient appeared well nourished and normally developed. HEENT: Head exam is unremarkable. Neck is without jugular venous distension. LUNGS: Breath sounds decreased. HEART: Rate and Rhythm are regular. delete ABDOMEN: soft, obese. EXTREMITITES: 1+ edema. Chronic changes noted. Objective - Vital Signs Vital signs: Vital Signs Temp 97.9 F 12/06/20 04:32 Pulse 77 12/06/20 04:32 Resp 16 12/06/20 04:32 BP 139/51 12/06/20 04:32 Pulse Ox 96 12/06/20 04:32 Intake & Output 12/05/20 12/06/20 12/06/20 18:59 06:59 18:59 Intake Total 500 Balance 500 Weight 127.459 kg 116.5 kg Intake: Oral 500 Other: # Voids 1 2 - Labs CBC & Chem 7: 12/06/20 04:39 12/04/20 19:13 Labs: Abnormal Lab Results - Last 24 Hours (Table) 12/05/20 12/05/20 12/05/20 Range/Units 11:33 17:23 19:43 RBC (3.80-5.40) m/uL MCV (80.0-100.0) fL POC Glucose (mg/dL) 183 H 169 H 188 H (75-99) mg/dL 12/06/20 12/06/20 Range/Units 04:39 07:24 RBC 3.42 L (3.80-5.40) m/uL MCV 100.6 H (80.0-100.0) fL POC Glucose (mg/dL) 115 H (75-99) mg/dL Assessment and Plan Plan: Assessment: 1. [place] vs CKD - cr 1.4-1.7 in october/november 2020. UA benign. No hydronephrosis noted on kidney ultrasound. 2. Volume overload. 3. Diabetes. 4. Benign hypertension. Stable. Plan: Maintain IV lasix 40 mg bid. Avoid nephrotoxins. Low salt diet. Continue to monitor renal function and UO. AM labs pending.
[2020-12-06 09:40] LABS: African American GFR (CKD) 41.6 (60.0-200.0); Anion Gap 11.4 mmol/L (4.00-12.00); BUN/Creat Ratio 27.14 Ratio (12.00-20.00); Calcium 9.7 mg/dL (8.7-10.3); Carbon Dioxide 26.6 mmol/L (21.6-31.8); Magnesium 1.9 mg/dL (1.5-2.4); Non-African American GFR(CKD) 35.9 (60.0-200.0); Potassium 4.5 mmol/L (3.5-5.5)
[2020-12-06 12:05] LABS: Glucose,Whole Blood 118 mg/dL (75-99)
--- NOTE | 2020-12-06 13:51 | P.CRDCN ---
History of Present Illness Consult date: 12/06/20 Chief complaint: Shortness of breath History of present illness: This is a 80-year-old female patient who sees Dr. Adrian regularly with a past medical history significant for congestive heart failure of unknown etiology at this point, no prior echo in the hospital but the patient was told that she has heart failure, obesity, chronic kidney disease, and lower extremities peripheral arterial disease. We requested to see the patient for further evaluation of heart failure. The patient presented with progressive exertional dyspnea and progressive gain weight. She stated that she gained about 15 pounds within 2-3 days. She was maintaining on Bumex as an outpatient and she stated that she has been clearly compliant with all of her medications as well as her diet. No symptoms of chest pain and no chest discomfort and no dizziness or lightheadedness or any feeling of heart racing or fluttering or syncope. She was found to have renal failure and currently nephrology is on the case but at the same time the patient has been maintaining on IV Lasix. She has been diuresing very well. The EKG showed sinus rhythm without any significant ST or T-wave abnormalities. The cardiac enzymes were checked and came in to be unremarkable. The chest x-ray showed no acute abnormalities. NT proBNP is 431. She is morbidly obese. On examination she does have diminished breathing sounds bilaterally and also does have bilateral lower extremities edema which seems to be very severe with chronic skin changes. The jugular veins were not identified because of body habitus. Past Medical History Past Medical History: Atrial Fibrillation, Asthma, Cancer, Heart Failure, Diabetes Mellitus, GI Bleed, Hyperlipidemia, Hypertension, Memory Impairment, Osteoarthritis (OA), Renal Disease, Skin Disorder, Sleep Apnea/CPAP/BIPAP Additional Past Medical History / Comment(s): Pt recently admitted to [facility] with R lower leg cellulitis, CKD stge IV and CHF. Other hx: Afib once associated with beta josafat, IDDM type II, CKD III-IV, "prone to" polynephritis, UTIs, colon cancer with resection, past pneumonias, chronic bronchitits, lower GI bleed, colon polyps, diverticular disease, small hiatal hernia, bilateral leg pain especially L leg, bilateral lower leg/pedal edema, gait dysturbance, vertigo, FALLS, LACEY-no device, "lump" present L lower leg, History of Any Multi-Drug Resistant Organisms: None Reported Past Surgical History: Appendectomy, Bowel Resection, Breast Surgery, Cholecystectomy Additional Past Surgical History / Comment(s): EGD, colonoscopies/polypectomies, L breast benign biopsy. Past Anesthesia/Blood Transfusion Reactions: Postoperative Nausea & Vomiting (PONV) Additional Past Anesthesia/Blood Transfusion Reaction / Comment(s): Family hx PONV as well. Smoking Status: Former smoker - Past Family History Daughter(s) Family Medical History: Cancer Additional Family Medical History / Comment(s): Breast cancer. Sister(s) Family Medical History: Cancer Additional Family Medical History / Comment(s): 1 sister had breast cancer and 1 sister had uterine cancer. Mother Family Medical History: Diabetes Mellitus Additional Family Medical History / Comment(s): heart problems Father Additional Family Medical History / Comment(s): heart problems Medications and Allergies Home Medications Medication Instructions Recorded Confirmed Type Aspirin [Adult Low Dose Aspirin EC] 81 mg PO DAILY 07/28/16 12/04/20 History Atorvastatin [Lipitor] 20 mg PO DAILY 07/28/16 12/04/20 History Losartan [Cozaar] 50 mg PO DAILY 07/28/16 12/04/20 History sitaGLIPtin [Januvia] 50 mg PO DAILY 07/28/16 12/04/20 History Amitriptyline HCl 25 mg PO HS 10/02/20 12/04/20 History DULoxetine HCL [Cymbalta] 60 mg PO HS 10/02/20 12/04/20 History Echinacea Root/Goldenseal Root 1 cap PO HS 10/02/20 12/04/20 History [Echinac-Goldenseal 250-250 mg] Albuterol Sulfate [Ventolin HFA] 2 puff INHALATION RT-Q6H PRN 12/04/20 12/04/20 History Bumetanide 2 mg PO DAILY 12/04/20 12/04/20 History Folic Acid 0.8 mg PO HS 12/04/20 12/04/20 History Glucos Sul 2Kcl/MSM/Chond/C/Mn 1 cap PO HS 12/04/20 12/04/20 History [Glucosamine Chondroitin Cap] Insulin NPH Hum/Reg Insulin Hm 48 units SQ HS 12/04/20 12/04/20 History [Novolin 70-30 Flexpen] Insulin NPH Hum/Reg Insulin Hm 66 units SQ DAILY 12/04/20 12/04/20 History [Novolin 70-30 Flexpen] Oxybutynin ER [Ditropan Xl] 15 mg PO DAILY 12/04/20 12/04/20 History Uag-Cchd-Eukbu Acid 1 cap PO HS 12/04/20 12/04/20 History [-U Capsule (formulary)] Allergies Allergy/AdvReac Type Severity Reaction Status Date / Time beta blockers Allergy Hallucinati Uncoded 12/04/20 19:59 ons Physical Exam Vitals: Vital Signs Temp Pulse Resp BP Pulse Ox 12/06/20 13:00 97.7 F 68 19 144/70 97 12/06/20 04:32 97.9 F 77 16 139/51 96 12/05/20 19:27 98.0 F 72 16 133/82 96 Intake and Output 12/05/20 12/06/20 12/06/20 22:59 06:59 14:59 Intake Total 500 Balance 500 Intake: Oral 500 Other: Voiding Method Toilet # Voids 1 2 Weight 116.5 kg - Constitutional General appearance: no acute distress - Respiratory Respiratory: bilateral: diminished - Cardiovascular Rhythm: regular Heart sounds: normal: S1, S2 Results 12/06/20 04:39 12/06/20 04:39 CBC 12/06/20 Range/Units 04:39 WBC 5.5 (3.8-10.6) k/uL RBC 3.42 L (3.80-5.40) m/uL Hgb 11.4 (11.4-16.0) gm/dL Hct 34.4 (34.0-46.0) % Plt Count 163 (150-450) k/uL Comprehensive Metabolic Panel 12/06/20 Range/Units 04:39 Sodium 137 (135-145) mmol/L Potassium 4.5 (3.5-5.5) mmol/L Chloride 99 (96-109) mmol/L Carbon Dioxide 26.6 (21.6-31.8) mmol/L BUN 38.0 H (9.0-27.0) mg/dL Creatinine 1.4 (0.6-1.5) mg/dL Glucose 101 (70-110) mg/dL Calcium 9.7 (8.7-10.3) mg/dL Current Medications Generic Name Dose Route Start Last Admin Trade Name Freq PRN Reason Stop Dose Admin Acetaminophen 650 mg 12/04/20 22:00 Acetaminophen Tab 325 Mg Tab PO Q6HR PRN Mild Pain or Fever > 100.5 Albuterol Sulfate 2 puff 12/05/20 14:31 Albuterol Hfa Inhaler INHALATION RT-Q6H PRN Shortness Of Breath Amitriptyline HCl 25 mg 12/04/20 22:45 12/05/20 20:39 Amitriptyline Hcl 25 Mg Tab PO 25 mg HS PATY Administration Aspirin 81 mg 12/05/20 09:00 12/06/20 07:39 Aspirin 81 Mg PO 81 mg DAILY PATY Administration Atorvastatin Calcium 20 mg 12/05/20 09:00 12/06/20 07:39 Atorvastatin 20 Mg Tab PO 20 mg DAILY PATY Administration Duloxetine HCl 60 mg 12/04/20 22:45 12/05/20 20:40 Duloxetine Hcl 60 Mg Capsule.Dr PO 60 mg HS PATY Administration Folic Acid 1 mg 12/05/20 21:00 12/05/20 20:40 Folic Acid 1 Mg Tab PO 1 mg HS PATY Administration Furosemide 40 mg 12/05/20 21:00 12/06/20 07:39 Furosemide 10 Mg/Ml 4 Ml Vial IV 40 mg Q12HR PATY Administration Heparin Sodium (Porcine) 5,000 unit 12/05/20 21:00 12/06/20 07:39 Heparin Sodium,Porcine/Pf 5,000 Unit/0.5 Ml Syringe SQ 5,000 unit Q12HR PATY Administration Insulin Aspart 0 unit 12/05/20 07:30 12/06/20 12:58 Insulin Aspart (Novolog) 100 Unit/Ml Vial SQ Not Given ACHS [facility] Protocol Insulin Aspart 48 unit 12/05/20 21:00 12/05/20 20:40 Insuln Asp Prt/Insulin Aspart 100 Unit/Ml 10 Ml Vial SQ 48 unit HS PATY Administration Insulin Aspart 66 unit 12/06/20 09:00 12/06/20 07:57 Insuln Asp Prt/Insulin Aspart 100 Unit/Ml 10 Ml Vial SQ 66 unit DAILY PATY Administration Losartan Potassium 50 mg 12/05/20 09:00 12/06/20 07:39 Losartan 50 Mg Tab PO 50 mg DAILY PATY Administration Naloxone HCl 0.2 mg 12/04/20 22:00 Naloxone 0.4 Mg/Ml 1 Ml Vial IV Q2M PRN Opioid Reversal Oxybutynin Chloride 15 mg 12/06/20 09:00 12/06/20 07:40 Oxybutynin 15 Mg Tab.Er.24 PO 15 mg DAILY PATY Administration Intake and Output 12/05/20 12/06/20 12/06/20 22:59 06:59 14:59 Intake Total 500 Balance 500 Intake: Oral 500 Other: Voiding Method Toilet # Voids 1 2 Weight 116.5 kg 12/06/20 04:39 12/06/20 04:39 Assessment and Plan Assessment: Assessment #1 acute exacerbation of heart failure of unknown etiology at this point, probably diastolic heart failure #2 acute on chronic renal failure #3 morbid obesity #4 lower extremities peripheral arterial disease #5 multiple comorbid conditions Plan #1 continue IV Lasix #2 continue monitoring the kidney function and electrolytes #3 obtain an echocardiogram to establish LV function #4 follow-up with the patient
[2020-12-06] MEDS: ACETAMINOPHEN TAB 325 MG TAB PO PRN ×2 (15:32→20:33)
[2020-12-06 17:18] LABS: Glucose,Whole Blood 147 mg/dL (75-99)
--- NOTE | 2020-12-06 19:13 | P.PN ---
Subjective Progress Note Date: 12/06/20 Principal diagnosis: Acute exacerbation CHF Acute on chronic kidney disease Transaminitis Hyperglycemia 80-year-old female with history of CHF, chronic kidney disease presenting with weight gain, increased dyspnea. Symptoms have progressed over the past one month, patient was admitted at an outside hospital with CHF and chronic kidney disease. She is currently on Bumex. She's had 8-10 pound weight gain recently and his had increased lower extremity edema as well as increased dyspnea. No fevers. Minimal central chest discomfort, no central chest pain. Workup in ED including an EKG reveals normal sinus rhythm, no ST segment elevation; labs reveal sodium of 133, potassium 4.8, BUN 38 with creatinine of 1.4 to and glucose 190; AST/ALT 77/35 and BNP of 431 Patient is admitted for further evaluation of CHF and acute on chronic kidney disease Objective - Vital Signs Vital signs: Vital Signs Temp 97.7 F 12/06/20 13:00 Pulse 68 12/06/20 13:00 Resp 19 12/06/20 13:00 BP 144/70 12/06/20 13:00 Pulse Ox 97 12/06/20 13:00 Intake & Output 12/05/20 12/06/20 12/06/20 18:59 06:59 18:59 Intake Total 500 Balance 500 Weight 127.459 kg 116.5 kg Intake: Oral 500 Other: Voiding Method Toilet # Voids 1 2 - Exam General: The patient appeared well nourished and normally developed. HEENT: Head exam is unremarkable. Neck is without jugular venous distension. LUNGS: Breath sounds decreased. HEART: Rate and Rhythm are regular. delete ABDOMEN: soft, obese. EXTREMITITES: 1+ edema. Chronic changes noted. - Labs CBC & Chem 7: 12/06/20 04:39 12/06/20 04:39 Labs: Abnormal Lab Results - Last 24 Hours (Table) 12/05/20 12/05/20 12/06/20 Range/Units 17:23 19:43 04:39 RBC 3.42 L (3.80-5.40) m/uL MCV 100.6 H (80.0-100.0) fL BUN (9.0-27.0) mg/dL Est GFR (CKD-EPI)AfAm (60.0-200.0) Est GFR (CKD-EPI)NonAf (60.0-200.0) BUN/Creatinine Ratio (12.00-20.00) Ratio POC Glucose (mg/dL) 169 H 188 H (75-99) mg/dL 12/06/20 12/06/20 12/06/20 Range/Units 04:39 07:24 11:40 RBC (3.80-5.40) m/uL MCV (80.0-100.0) fL BUN 38.0 H (9.0-27.0) mg/dL Est GFR (CKD-EPI)AfAm 41.6 L (60.0-200.0) Est GFR (CKD-EPI)NonAf 35.9 L (60.0-200.0) BUN/Creatinine Ratio 27.14 H (12.00-20.00) Ratio POC Glucose (mg/dL) 115 H 118 H (75-99) mg/dL Assessment and Plan Assessment: 1. Acute exacerbation CHF - Patient is placed on diuretics in form of Lasix 40 mg IV every 12 hours; we will monitor strict MADELEINE's, daily weights, renal function and lites; low-salt and fluid restricted diet; consult cardiology 2. Acute on chronic kidney disease; hold off on IV fluid hydration due to CHF; we will monitor strict MADELEINE's, daily weights, renal function and electrolytes; avoid nephrotoxins and hypotension 3. Transaminitis; possible passive congestion due to CHF; we will monitor liver enzymes closely and plan to order ultrasound of liver if continue to trend up 4. Hyperglycemia/diabetes mellitus controlled with insulin; we will resume home dose of insulin 7030 and monitor Accu-Cheks before meals and at bedtime with insulin sliding scale 5. Hypertension; losartan 50 mg by mouth daily 6. Hyperlipidemia; Lipitor 20 mg by mouth daily 7. Sleep apnea; uses CPAP at home DVT prophylaxis; SCDs/subcu heparin CODE STATUS; full code
[2020-12-06 19:43] LABS: Glucose,Whole Blood 214 mg/dL (75-99)
[2020-12-06] MEDS: AMITRIPTYLINE HCL 25 MG TAB PO SCH (20:28)
[2020-12-06] MEDS: DULoxetine HCL 60 MG CAPSULE.DR PO SCH (20:28)
[2020-12-06] MEDS: FOLIC ACID 1 MG TAB PO SCH (20:28)
[2020-12-07 05:53] LABS: Basophils % (A) 1 %; Eosinophils # (A) 0.2 k/uL (0-0.7); Eosinophils % (A) 3 %; HCT 32.3 % (34.0-46.0); HGB 10.9 gm/dL (11.4-16.0); Lymphocytes # (A) 1.4 k/uL (1.0-4.8); Lymphocytes % (A) 31 %; MCH 33.8 pg (25.0-35.0); MCHC 33.7 g/dL (31.0-37.0); MCV 100.2 fL (80.0-100.0); Mean Platelet Volume 6.8; Monocytes # (A) 0.4 k/uL (0-1.0); Monocytes % (A) 8 %; Neutrophils # (A) 2.6 k/uL (1.3-7.7); Neutrophils % (A) 55 %; Platelet Count 161 k/uL (150-450); RBC 3.23 m/uL (3.80-5.40); RDW 13.6 % (11.5-15.5); WBC 4.7 k/uL (3.8-10.6)
[2020-12-07 07:28] LABS: Glucose,Whole Blood 90 mg/dL (75-99)
[2020-12-07] MEDS: INSULIN ASPART (NovoLOG) 100 UNIT/ML VIAL SQ SCH ×4 (07:33→22:13)
[2020-12-07] MEDS: LOSARTAN 50 MG TAB PO SCH (08:06)
[2020-12-07] MEDS: ASPIRIN 81 MG PO SCH (08:06)
[2020-12-07] MEDS: HEPARIN SODIUM,PORCINE/PF 5,000 UNIT/0.5 ML SYRINGE SQ SCH ×2 (08:06→22:12)
[2020-12-07] MEDS: FUROSEMIDE 10 MG/ML 4 ML VIAL IV SCH ×2 (08:06→22:12)
[2020-12-07] MEDS: OXYBUTYNIN 15 MG TAB.ER.24 PO SCH (08:06)
[2020-12-07] MEDS: ATORVASTATIN 20 MG TAB PO SCH (08:06)
[2020-12-07] MEDS: INSULN ASP PRT/INSULIN ASPART 100 UNIT/ML 10 ML VIAL SQ SCH ×2 (08:07→22:13)
--- NOTE | 2020-12-07 09:38 | P.PN ---
Subjective Progress Note Date: 12/07/20 Principal diagnosis: Severe bilateral lower extremities edema This is a 80-year-old female patient with a past medical history significant for "congestive heart failure", chronic renal failure, morbid obesity, and lower extremities peripheral arterial disease was admitted to the hospital with heart failure exacerbation of unknown etiology. She gained significant amount of [place] ght within a few days. She developed severe bilateral lower extremities edema as well as increasing in the shortness of breath. The patient was seen this morning. She stated that she still not feeling better. On examination she is to have severe bilateral lower extremities edema. Her chest SOMEWHAT is a clear on examination. She denies any symptoms of chest pain or chest discomfort or dizziness or lightheadedness. She continues to be on Lasix IV at 40 mg twice a day and nephrology continues to be on the case. The blood work regarding the kidney function still pending at this point. The echocardiogram still pending. Objective - Vital Signs Vital signs: Vital Signs Temp 97.5 F L 12/07/20 04:58 Pulse 71 12/07/20 04:58 Resp 16 12/07/20 04:58 BP 117/66 12/07/20 04:58 Pulse Ox 96 12/07/20 04:58 Intake & Output 12/06/20 12/07/20 12/07/20 18:59 06:59 18:59 Intake Total 1550 Balance 1550 Weight 117.5 kg Intake: Oral 1550 Other: Voiding Method Toilet Toilet # Voids 5 2 - Constitutional General appearance: Present: no acute distress - Respiratory Respiratory: bilateral: CTA - Cardiovascular Rhythm: regular Heart sounds: normal: S1, S2 Abnormal Heart Sounds: Present: systolic murmur - Labs CBC & Chem 7: 12/07/20 05:17 12/06/20 04:39 Labs: Abnormal Lab Results - Last 24 Hours (Table) 12/06/20 12/06/20 12/06/20 Range/Units 04:39 11:40 17:06 RBC (3.80-5.40) m/uL Hgb (11.4-16.0) gm/dL Hct (34.0-46.0) % MCV (80.0-100.0) fL BUN 38.0 H (9.0-27.0) mg/dL Est GFR (CKD-EPI)AfAm 41.6 L (60.0-200.0) Est GFR (CKD-EPI)NonAf 35.9 L (60.0-200.0) BUN/Creatinine Ratio 27.14 H (12.00-20.00) Ratio POC Glucose (mg/dL) 118 H 147 H (75-99) mg/dL 12/06/20 12/07/20 Range/Units 19:40 05:17 RBC 3.23 L (3.80-5.40) m/uL Hgb 10.9 L (11.4-16.0) gm/dL Hct 32.3 L (34.0-46.0) % MCV 100.2 H (80.0-100.0) fL BUN (9.0-27.0) mg/dL Est GFR (CKD-EPI)AfAm (60.0-200.0) Est GFR (CKD-EPI)NonAf (60.0-200.0) BUN/Creatinine Ratio (12.00-20.00) Ratio POC Glucose (mg/dL) 214 H (75-99) mg/dL Assessment and Plan Assessment: Assessment #1 acute exacerbation of heart failure of unknown etiology at this point, probably diastolic heart failure #2 acute on chronic renal failure #3 morbid obesity #4 lower extremities peripheral arterial disease #5 multiple comorbid conditions Plan #1 continue IV Lasix #2 continue monitoring the kidney function and electrolytes #3 follow-up on the echocardiogram #4 follow-up with the patient
--- NOTE | 2020-12-07 09:44 | P.PN ---
Subjective patient is seen in follow-up for acute kidney injury on chronic kidney disease. Maintained on IV Lasix. Good urine output. Hemodynamically stable. No chest pain or shortness of breath. No changes overnight. Vital signs are stable. General: The patient appeared well nourished and normally developed. HEENT: Head exam is unremarkable. Neck is without jugular venous distension. LUNGS: Breath sounds decreased. HEART: Rate and Rhythm are regular. delete ABDOMEN: soft, obese. EXTREMITITES: 1+ edema. Chronic changes noted. Objective - Vital Signs Vital signs: Vital Signs Temp 97.5 F L 12/07/20 04:58 Pulse 71 12/07/20 04:58 Resp 16 12/07/20 04:58 BP 117/66 12/07/20 04:58 Pulse Ox 96 12/07/20 04:58 Intake & Output 12/06/20 12/07/20 12/07/20 18:59 06:59 18:59 Intake Total 1550 Balance 1550 Weight 117.5 kg Intake: Oral 1550 Other: Voiding Method Toilet Toilet # Voids 5 2 - Labs CBC & Chem 7: 12/07/20 05:17 12/06/20 04:39 Labs: Abnormal Lab Results - Last 24 Hours (Table) 12/06/20 12/06/20 12/06/20 Range/Units 11:40 17:06 19:40 RBC (3.80-5.40) m/uL Hgb (11.4-16.0) gm/dL Hct (34.0-46.0) % MCV (80.0-100.0) fL POC Glucose (mg/dL) 118 H 147 H 214 H (75-99) mg/dL 12/07/20 Range/Units 05:17 RBC 3.23 L (3.80-5.40) m/uL Hgb 10.9 L (11.4-16.0) gm/dL Hct 32.3 L (34.0-46.0) % MCV 100.2 H (80.0-100.0) fL POC Glucose (mg/dL) (75-99) mg/dL Assessment and Plan Plan: Assessment: 1. [place] vs CKD - cr 1.4-1.7 in october/november 2020. UA benign. No hydronephrosis noted on kidney ultrasound. Creatinine stable at 1.4 yesterday. 2. Volume overload. Improving with diuresis. 3. Diabetes. 4. Benign hypertension. Stable. Plan: Maintain IV lasix 40 mg bid. Transition to oral diuretics possibly tomorrow. Avoid nephrotoxins. Low salt diet. Continue to monitor renal function and UO. AM labs pending.
[2020-12-07 09:58] LABS: African American GFR (CKD) 38.3 (60.0-200.0); Albumin 3.4 g/dL (3.80-4.90); Anion Gap 9.4 mmol/L (4.00-12.00); BUN/Creat Ratio 24.67 Ratio (12.00-20.00); Bilirubin, Conjugated 0.3 mg/dL (0.20-0.40); Bilirubin,Unconjugated 0.7 mg/dL; Calcium 8.7 mg/dL (8.7-10.3); Carbon Dioxide 27.6 mmol/L (21.6-31.8); Globulin 3.4 g/dL (1.6-3.3); Magnesium 1.8 mg/dL (1.5-2.4); Potassium 3.8 mmol/L (3.5-5.5); Total Protein 6.8 g/dL (6.2-8.2)
[2020-12-07 12:30] LABS: Glucose,Whole Blood 94 mg/dL (75-99)
[2020-12-07 17:30] LABS: Glucose,Whole Blood 234 mg/dL (75-99)
[2020-12-07 20:07] LABS: Glucose,Whole Blood 282 mg/dL (75-99)
[2020-12-07] MEDS: DULoxetine HCL 60 MG CAPSULE.DR PO SCH (22:12)
[2020-12-07] MEDS: FOLIC ACID 1 MG TAB PO SCH (22:12)
[2020-12-07] MEDS: AMITRIPTYLINE HCL 25 MG TAB PO SCH (22:12)
--- NOTE | 2020-12-08 04:11 | P.PN ---
Subjective Progress Note Date: 12/07/20 Principal diagnosis: Acute exacerbation CHF Acute on chronic kidney disease Transaminitis Hyperglycemia 80-year-old female with history of CHF, chronic kidney disease presenting with weight gain, increased dyspnea. Symptoms have progressed over the past one month, patient was admitted at an outside hospital with CHF and chronic kidney disease. She is currently on Bumex. She's had 8-10 pound weight gain recently and his had increased lower extremity edema as well as increased dyspnea. No fevers. Minimal central chest discomfort, no central chest pain. Workup in ED including an EKG reveals normal sinus rhythm, no ST segment elevation; labs reveal sodium of 133, potassium 4.8, BUN 38 with creatinine of 1.4 to and glucose 190; AST/ALT 77/35 and BNP of 431 Patient is admitted for further evaluation of CHF and acute on chronic kidney disease 12/07/2020 The patient was seen and evaluated with daughter at bedside; reports she still not feeling better. She denies any chest pain or dizziness or lightheadedness. Continues to have severe bilateral lower extremities edema. She continues to be on Lasix IV at 40 mg twice a day; Nephrology on board and recommending to Maintain IV lasix 40 mg bid. Transition to oral diuretics possibly tomorrow. Avoid nephrotoxins. Low salt diet. Continue to monitor renal function and UO. The echocardiogram still pending. Objective - Vital Signs Vital signs: Vital Signs Temp 97.5 F L 12/07/20 04:58 Pulse 71 12/07/20 04:58 Resp 16 12/07/20 04:58 BP 117/66 12/07/20 04:58 Pulse Ox 96 12/07/20 04:58 Intake & Output 12/06/20 12/07/20 12/07/20 18:59 06:59 18:59 Intake Total 1550 Balance 1550 Weight 117.5 kg Intake: Oral 1550 Other: Voiding Method Toilet Toilet # Voids 5 2 - Exam General: The patient appeared well nourished and normally developed. HEENT: Head exam is unremarkable. Neck is without jugular venous distension. LUNGS: Breath sounds decreased. HEART: Rate and Rhythm are regular. delete ABDOMEN: soft, obese. EXTREMITITES: 1+ edema. Chronic changes noted. - Labs CBC & Chem 7: 12/07/20 05:17 12/07/20 05:17 Labs: Abnormal Lab Results - Last 24 Hours (Table) 12/06/20 12/06/20 12/06/20 Range/Units 11:40 17:06 19:40 RBC (3.80-5.40) m/uL Hgb (11.4-16.0) gm/dL Hct (34.0-46.0) % MCV (80.0-100.0) fL BUN (9.0-27.0) mg/dL Est GFR (CKD-EPI)AfAm (60.0-200.0) Est GFR (CKD-EPI)NonAf (60.0-200.0) BUN/Creatinine Ratio (12.00-20.00) Ratio POC Glucose (mg/dL) 118 H 147 H 214 H (75-99) mg/dL AST (13-35) U/L Albumin (3.80-4.90) g/dL Globulin (1.6-3.3) g/dL Albumin/Globulin Ratio (1.60-3.17) g/dL 12/07/20 12/07/20 Range/Units 05:17 05:17 RBC 3.23 L (3.80-5.40) m/uL Hgb 10.9 L (11.4-16.0) gm/dL Hct 32.3 L (34.0-46.0) % MCV 100.2 H (80.0-100.0) fL BUN 37.0 H (9.0-27.0) mg/dL Est GFR (CKD-EPI)AfAm 38.3 L (60.0-200.0) Est GFR (CKD-EPI)NonAf 33.0 L (60.0-200.0) BUN/Creatinine Ratio 24.67 H (12.00-20.00) Ratio POC Glucose (mg/dL) (75-99) mg/dL AST 55 H (13-35) U/L Albumin 3.40 L (3.80-4.90) g/dL Globulin 3.4 H (1.6-3.3) g/dL Albumin/Globulin Ratio 1.00 L (1.60-3.17) g/dL Assessment and Plan Assessment: 1. Acute exacerbation CHF - Patient is placed on diuretics in form of Lasix 40 mg IV every 12 hours; we will monitor strict MADELEINE's, daily weights, renal function and lites; low-salt and fluid restricted diet; consult cardiology 2. Acute on chronic kidney disease; hold off on IV fluid hydration due to CHF; we will monitor strict MADELEINE's, daily weights, renal function and electrolytes; avoid nephrotoxins and hypotension 3. Transaminitis; possible passive congestion due to CHF; we will monitor liver enzymes closely and plan to order ultrasound of liver if continue to trend up 4. Hyperglycemia/diabetes mellitus controlled with insulin; we will resume home dose of insulin 7030 and monitor Accu-Cheks before meals and at bedtime with insulin sliding scale 5. Hypertension; losartan 50 mg by mouth daily 6. Hyperlipidemia; Lipitor 20 mg by mouth daily 7. Sleep apnea; uses CPAP at home DVT prophylaxis; SCDs/subcu heparin CODE STATUS; full code
[2020-12-08 06:58] LABS: Glucose,Whole Blood 108 mg/dL (75-99)
[2020-12-08] MEDS: INSULIN ASPART (NovoLOG) 100 UNIT/ML VIAL SQ SCH ×4 (07:14→20:54)
[2020-12-08] MEDS: LOSARTAN 50 MG TAB PO SCH (08:42)
[2020-12-08] MEDS: ASPIRIN 81 MG PO SCH (08:43)
[2020-12-08] MEDS: INSULN ASP PRT/INSULIN ASPART 100 UNIT/ML 10 ML VIAL SQ SCH ×2 (08:43→20:54)
[2020-12-08] MEDS: ATORVASTATIN 20 MG TAB PO SCH (08:43)
[2020-12-08] MEDS: HEPARIN SODIUM,PORCINE/PF 5,000 UNIT/0.5 ML SYRINGE SQ SCH ×2 (08:43→20:20)
[2020-12-08] MEDS: OXYBUTYNIN 15 MG TAB.ER.24 PO SCH (08:43)
[2020-12-08] MEDS: FUROSEMIDE 10 MG/ML 4 ML VIAL IV SCH ×2 (08:43→20:19)
[2020-12-08 09:13] LABS: African American GFR (CKD) 41.6 (60.0-200.0); Anion Gap 9.9 mmol/L (4.00-12.00); BUN/Creat Ratio 24.29 Ratio (12.00-20.00); Calcium 8.9 mg/dL (8.7-10.3); Carbon Dioxide 27.1 mmol/L (21.6-31.8); Magnesium 1.8 mg/dL (1.5-2.4); Non-African American GFR(CKD) 35.9 (60.0-200.0)
[2020-12-08 11:51] LABS: Glucose,Whole Blood 162 mg/dL (75-99)
--- NOTE | 2020-12-08 13:00 | PN ---
PROGRESS NOTE Mrs Hogan is a 80-year-old female with known history of hypertension, history of diabetes mellitus, hyperlipidemia, who presented with worsening dyspnea and worsening peripheral edema. She is followed on a regular basis with Dr. Adrian in the office and has underwent an echocardiogram in September that revealed a preserved systolic function with mild pulmonary hypertension. She had a stress test at the same time that revealed no evidence of obstructive disease. She is feeling slightly better today. She denies any chest pain. She denies any dizziness or palpitation. She is laying supine without significant dyspnea. She has no PND or orthopnea. She continues to have peripheral edema, although according to her brother, her baseline is according to her she has peripheral edema, it was getting worse prior to admission. She has gained weight. Her medications at this time include aspirin, Lipitor 20 mg daily, Lasix 40 mg IV q.12 hours, insulin, losartan 50 mg daily. PHYSICAL EXAMINATION: Blood pressure running in the 130s with a heart rate in 70s. LUNGS: Clear. HEART:Regular rate and rhythm S1, S2. No S3 with systolic murmur. No diastolic murmur. No rub. ABDOMEN: Soft, obese, nontender. EXTREMITIES: Chronic skin changes with 1 to 2+ edema. LAB DATA: Lab data revealed BUN and creatinine of 34 and 1.4, potassium 4.0. On presentation, her NT proBNP was 431. Her creatinine was higher on admission. IMPRESSION: 1. Symptoms of progressive dyspnea on exertion. Her NT proBNP was normal on admission. Her systolic function normal. She may have had some element of fluid overload related to venous insufficiency. At this time, I see no significant lung congestion. Her chest x-ray on presentation showed no heart failure. 2. Hypertension. 3. Diabetes mellitus. 4. Kidney disease. RECOMMENDATIONS: From the cardiac standpoint, I will continue present therapy. I would expect she should be able to be transitioned to oral diuretics. Continue the rest of her medical regimen. If stable, hopefully discharge home soon and follow up on a regular basis with Dr. Adrian. MMMARÍAL / MARIAJOSE: [id number] /
--- NOTE | 2020-12-08 13:55 | ECHOF ---
Referral Reason:SOB MEASUREMENTS -------- HEIGHT: 152.4 cm WEIGHT: 117.9 kg BP: IVSd: 1.2 cm (0.6 - 1.1) LVIDd: 3.9 cm (3.9 - 5.3) LVPWd: 1.1 cm (0.6 - 1.1) IVSs: 1.6 cm LVIDs: 2.3 cm LVPWs: 1.7 cm LAESV Index (A-L): 22.24 ml/m Ao Diam: 2.4 cm (2.0 - 3.7) AV Cusp: 1.9 cm (1.5 - 2.6) LA Diam: 4.0 cm (2.7 - 3.8) MV EXCURSION: 15.965 mm (> 18.000) MV EF SLOPE: 60 mm/s (70 - 150) EPSS: 0.2 cm MV E Ez: 0.87 m/s MV DecT: 170 ms MV A Ez: 0.91 m/s MV E/A Ratio: 0.95 RAP: 5.00 mmHg RVSP: 21.98 mmHg FINDINGS -------- Sinus rhythm. This was a technically adequate study. Morbid Obesity The left ventricular size is normal. There is mild concentric left ventricular hypertrophy. Overa ll left ventricular systolic function is normal with, an EF between 55 - 60 %. The diastolic fillin g pattern is normal for the age of the patient 10.95. The right ventricle is normal in size. Normal LA size by volume 22+/-6 ml/m2. The right atrial size is normal. The aortic valve is trileaflet, and appears structurally normal. No aortic stenosis or regurgitation. Mild mitral annular calcification present. Mild mitral regurgitation is present. The tricuspid valve appears structurally normal. Mild tricuspid regurgitation present. Right vent ricular systolic pressure is normal at < 35 mmHg. The pulmonic valve was not well visualized. The aortic root size is normal. Echo free space represents a pericardial fat pad. CONCLUSIONS -------- 1. There is mild concentric left ventricular hypertrophy. 2. Overall left ventricular systolic function is normal with, an EF between 55 - 60 %. 3. Normal LA size by volume 22+/-6 ml/m2. 4. The aortic valve is trileaflet, and appears structurally normal. No aortic stenosis or regurgitati on. 5. Mild mitral annular calcification present. 6. Mild mitral regurgitation is present. 7. Mild tricuspid regurgitation present. 8. Echo free space represents a pericardial fat pad. ETHYL BLENDER: Mandy Aranda RDCS
--- NOTE | 2020-12-08 16:11 | P.PN ---
Subjective Progress Note Date: 12/08/20 Acute exacerbation CHF Acute on chronic kidney disease Transaminitis Hyperglycemia 80-year-old female with history of CHF, chronic kidney disease presenting with weight gain, increased dyspnea. Symptoms have progressed over the past one month, patient was admitted at an outside hospital with CHF and chronic kidney disease. She is currently on Bumex. She's had 8-10 pound weight gain recently and his had increased lower extremity edema as well as increased dyspnea. No fevers. Minimal central chest discomfort, no central chest pain. Workup in ED including an EKG reveals normal sinus rhythm, no ST segment elevation; labs reveal sodium of 133, potassium 4.8, BUN 38 with creatinine of 1.4 to and glucose 190; AST/ALT 77/35 and BNP of 431 Patient is admitted for further evaluation of CHF and acute on chronic kidney disease 12/07/2020 The patient was seen and evaluated with daughter at bedside; reports she still not feeling better. She denies any chest pain or dizziness or lightheadedness. Continues to have severe bilateral lower extremities edema. She continues to be on Lasix IV at 40 mg twice a day; Nephrology on board and recommending to Maintain IV lasix 40 mg bid. Transition to oral diuretics possibly tomorrow. Avoid nephrotoxins. Low salt diet. Continue to monitor renal function and UO. The echocardiogram still pending. 12/08/2020 Patient is seen and evaluated and follow-up currently just underwent 2-D echo which shows LV systolic function is normal with an EF of 55-60% with some mild mitral annular calcification present along with mild mitral and tricuspid regurgitation present. Patient continues on IV Lasix and will continue and transition to oral Lasix in the morning. Current creatinine is 1.4 stable. She states she continues to have some shortness of breath with exertion and continued lower extremity edema. Sodium is 137 with a potassium 4.0 and magnesium is 1.8. Blood sugars more controlled today and will continue with cu rrent regimen. Review of systems: Constitutional: No reports of fatigue, fever, or chills Cardiovascular: No reports of chest pain or palpitations Respiratory: Reports intermittent shortness of breath exertion GI: No reports of nausea, vomiting, or diarrhea : No reports of dysuria or retention Neurovascular: No reports of weakness or numbness All medications have been reviewed Objective - Vital Signs Vital signs: Vital Signs Temp 97.9 F 12/08/20 04:13 Pulse 87 12/08/20 04:13 Resp 18 12/08/20 04:13 BP 167/67 12/08/20 04:13 Pulse Ox 95 12/08/20 04:13 Intake & Output 12/07/20 12/08/20 12/08/20 18:59 06:59 18:59 Intake Total 840 240 Output Total 300 Balance 840 -60 Weight 118 kg Intake: Oral 840 240 Output: Urine 300 Other: # Voids 2 2 1 # Bowel Movements 1 - Exam Gen: This is a 80-year-old female lying in bed awake, alert and oriented 3, well-developed, well-nourished, morbidly obese. HEENT: Head is atraumatic, normocephalic. Pupils equal, round. Sclerae is anicteric. NECK: Supple. No JVD. No lymphadenopathy. No thyromegaly. LUNGS: diminished breath sounds bilaterally with no wheezing or rhonchi noted. No intercostal retractions. HEART: S1, S2 are muffled ABDOMEN: Soft. Obese. Bowel sounds are present. No masses. No tenderness. EXTREMITIES: Bilateral lower extremity edema 1-2+ pitting. No calf tenderness. NEUROLOGICAL: Patient is awake, alert and oriented x3. Cranial nerves 2 through 12 are grossly intact. - Labs CBC & Chem 7: 12/07/20 05:17 12/08/20 04:56 Labs: Abnormal Lab Results - Last 24 Hours (Table) 12/07/20 12/07/20 12/08/20 Range/Units 17:27 20:01 04:56 BUN 34.0 H (9.0-27.0) mg/dL Est GFR (CKD-EPI)AfAm 41.6 L (60.0-200.0) Est GFR (CKD-EPI)NonAf 35.9 L (60.0-200.0) BUN/Creatinine Ratio 24.29 H (12.00-20.00) Ratio POC Glucose (mg/dL) 234 H 282 H (75-99) mg/dL 12/08/20 Range/Units 06:49 BUN (9.0-27.0) mg/dL Est GFR (CKD-EPI)AfAm (60.0-200.0) Est GFR (CKD-EPI)NonAf (60.0-200.0) BUN/Creatinine Ratio (12.00-20.00) Ratio POC Glucose (mg/dL) 108 H (75-99) mg/dL Assessment and Plan Assessment: -Acute exacerbation CHF; Patient is placed on diuretics in form of Lasix 40 mg IV every 12 hours; low-salt and fluid restricted diet; cardiology following -Acute on chronic kidney disease; stable at 1.3 -Transaminitis; possible secondary to vascular congestion due to CHF; we will monitor liver enzymes closely and plan to order ultrasound of liver if continue to trend up -Hyperglycemia/diabetes mellitus controlled with insulin; we will resume home dose of insulin 70/30 and monitor Accu-Cheks before meals and at bedtime with insulin sliding scale -Hypertension; continue current medications -Hyperlipidemia -Sleep apnea; uses CPAP at home -DVT prophylaxis; subcu heparin -full code Plan: Continue with current medications and continue with IV Lasix twice daily and will transition to oral diuretics in the morning. She continues to have bilateral lower extremity edema and instructed the patient to continue to elevate while at rest and may use Kurt wraps from the toes up to the knees. Recommend continuing to monitor Accu-Cheks before meals and at bedtime and continue with current medication regimen. Continue with low-salt heart healthy diet. Instructed the patient increase activity as tolerated. 2-D echo was done as mentioned previously and cardiology following. Possible discharge in 24 hours.
--- NOTE | 2020-12-08 16:21 | PN ---
PROGRESS NOTE The patient is seen for followup for acute kidney injury. Renal function is fairly stable. Serum creatinine staying at about 1.4. It is down from 1.7 previously. Currently patient is maintained on IV Lasix. She is being diuresed. She denies any significant chest pains or shortness of breath. She is also maintained on angiotensin receptor blockers. PHYSICAL EXAMINATION: On examination today, blood pressure was 167/67, heart rate 85 per minute. She is afebrile. Examination of the heart S1, S2. Examination of the lungs, decreased breath sounds at bases. Abdomen is soft, obese, nontender. Examination of lower extremity shows trace edema bilaterally. LABS: Show sodium 137, potassium 4.0, chloride 100, BUN 34, creatinine 1.4. ASSESSMENT: 1. Chronic kidney disease with an element of acute kidney injury, currently fairly stable, creatinine staying at 1.4. UA is completely benign, no evidence of obstruction noted. Continue to diurese patient. 2. Volume overload slowly improving. 3. Type 2 diabetes. 4. Benign hypertension with chronic kidney disease. PLAN: Continue to diurese patient. She is advised regarding salt and fluid restriction. Repeat labs in a.m. MMODL / IJN: [id number] /
[2020-12-08 17:15] LABS: Glucose,Whole Blood 167 mg/dL (75-99)
[2020-12-08] MEDS: FOLIC ACID 1 MG TAB PO SCH (20:19)
[2020-12-08] MEDS: DULoxetine HCL 60 MG CAPSULE.DR PO SCH (20:19)
[2020-12-08] MEDS: AMITRIPTYLINE HCL 25 MG TAB PO SCH (20:19)
[2020-12-08 20:35] LABS: Glucose,Whole Blood 225 mg/dL (75-99)
[2020-12-09] MEDS: ACETAMINOPHEN TAB 325 MG TAB PO PRN ×2 (04:07→11:59)
[2020-12-09 04:44] VITALS: RESP 16
[2020-12-09 07:02] LABS: Glucose,Whole Blood 100 mg/dL (75-99)
[2020-12-09] MEDS: INSULIN ASPART (NovoLOG) 100 UNIT/ML VIAL SQ SCH ×2 (07:05→11:57)
[2020-12-09] MEDS: ATORVASTATIN 20 MG TAB PO SCH (08:21)
[2020-12-09] MEDS: OXYBUTYNIN 15 MG TAB.ER.24 PO SCH (08:21)
[2020-12-09] MEDS: INSULN ASP PRT/INSULIN ASPART 100 UNIT/ML 10 ML VIAL SQ SCH (08:21)
[2020-12-09] MEDS: LOSARTAN 50 MG TAB PO SCH (08:21)
[2020-12-09] MEDS: FUROSEMIDE 10 MG/ML 4 ML VIAL IV SCH (08:21)
[2020-12-09] MEDS: HEPARIN SODIUM,PORCINE/PF 5,000 UNIT/0.5 ML SYRINGE SQ SCH (08:21)
[2020-12-09] MEDS: ASPIRIN 81 MG PO SCH (08:21)
[2020-12-09 10:22] LABS: African American GFR (CKD) 37 (>60 ml/min/1.73 sqM); Anion Gap 10 mmol/L; Blood Urea Nitrogen 35 mg/dL (7-17); Calcium 9.5 mg/dL (8.4-10.2); Carbon Dioxide 28 mmol/L (22-30); Chloride 100 mmol/L (98-107); Glucose 194 mg/dL (74-99); Magnesium 1.7 mg/dL (1.6-2.3); Non-African American GFR(CKD) 32 (>60 ml/min/1.73 sqM); Potassium 4.1 mmol/L (3.5-5.1); Sodium 138 mmol/L (137-145)
[2020-12-09 11:17] LABS: Glucose,Whole Blood 203 mg/dL (75-99)
[2020-12-09 12:02] VITALS: BP 129/78; PULSE 68; TEMP 98.3
--- NOTE | 2020-12-09 12:54 | P.PN ---
Subjective Progress Note Date: 12/09/20 HISTORY OF PRESENT ILLNESS: 80-year-old female with a history of hypertension, hyperlipidemia, diabetes mellitus who presented to the hospital with worsening shortness of breath and p eripheral edema. Patient follows in the office with Dr. Adrian. Patient underwent echocardiogram in September which revealed preserved systolic function with mild pulmonary hypertension. Patient also had a stress test performed at that time revealing no evidence of ischemia. Repeat echocardiogram performed yesterday revealed ejection fraction 55-60%, mild mitral regurgitation, and mild tricuspid regurgitation. Patient remains on IV Lasix 40 mg every 12 hours per nephrology. BUN today 35. Creatinine 1.55, up from 1.4 yesterday. Fluid balance over the last 24 hours is -2310cc. Patient examined sitting in the chair. She denies chest pain or pressure. She denies shortness of breath at rest. She reports shortness of breath when ambulating to the bathroom. Patient does not feel like her lower extremity edema has improved since yesterday. PHYSICAL EXAM: VITAL SIGNS: Reviewed. GENERAL: Well-developed in no acute distress. NECK: Supple. No JVD or thyromegaly LUNGS: Respirations even and unlabored. Lungs essentially clear to auscultation bilaterally. HEART: Regular rate and rhythm. S1 and S2 heard. Systolic murmur. EXTREMITIES: Normal range of motion. No clubbing or cyanosis. Peripheral pulses intact. 1+ bilateral lower extremity edema ASSESSMENT: Progressive dyspnea on exertion Lower extremity edema, likely secondary to venous insufficiency Hypertension Chronic kidney disease Diabetes mellitus PLAN: Continue current cardiac medications Lasix dosing per nephrology No further inpatient recommendations from a cardiac standpoint We will sign off. Please reconsult if needed. Nurse practitioner note has been reviewed by physician. Signing provider agrees with the documented findings, assessment, and plan of care. Objective - Vital Signs Vital signs: Vital Signs Temp 98 F 12/09/20 04:42 Pulse 74 12/09/20 04:42 Resp 16 12/09/20 04:42 BP 151/72 12/09/20 04:42 Pulse Ox 96 12/09/20 04:42 Intake & Output 12/08/20 12/09/20 12/09/20 18:59 06:59 18:59 Intake Total 240 Output Total 1450 1100 300 Balance -1450 -860 -300 Weight 123.7 kg 123.9 kg Intake: Oral 240 Output: Urine 1450 1100 300 Other: Voiding Method Toilet Toilet # Voids 1 1 # Bowel Movements 1 - Labs CBC & Chem 7: 12/07/20 05:17 12/09/20 09:27 Labs: Abnormal Lab Results - Last 24 Hours (Table) 12/08/20 12/08/20 12/08/20 Range/Units 11:25 17:12 20:33 BUN (7-17) mg/dL Creatinine (0.52-1.04) mg/dL Glucose (74-99) mg/dL POC Glucose (mg/dL) 162 H 167 H 225 H (75-99) mg/dL 12/09/20 12/09/20 Range/Units 06:56 09:27 BUN 35 H (7-17) mg/dL Creatinine 1.55 H (0.52-1.04) mg/dL Glucose 194 H (74-99) mg/dL POC Glucose (mg/dL) 100 H (75-99) mg/dL
--- NOTE | 2020-12-09 14:15 | PN ---
PROGRESS NOTE Patient is seen for followup for chronic kidney disease with an element of acute kidney injury initially, currently renal function fairly stable with creatinine staying at 1.4- 1.5 mg/dL. Patient is currently being diuresed. She is maintained on IV Lasix. Overall volume status has improved. She is tolerating angiotensin receptor blockers as well fairly well. PHYSICAL EXAMINATION: Blood pressure 151/72, heart rate 74 per minute. Patient is afebrile. Examination of the heart S1, S2. Examination of lungs, bilateral breath sounds are heard, decreased breath sounds at bases. Abdomen is soft, nontender, obese. Examination of lower extremities shows edema 1+ bilaterally. Chronic skin changes noted. [employer]ER exam grossly intact. LAB: Show sodium 138, potassium 4.1, chloride 100, BUN 35, creatinine 1.5 mg/dL. ASSESSMENT: 1. Chronic kidney disease with an element of acute kidney injury currently with stable renal function. Creatinine staying 1.4-1.5 mg g mg per dL. UA is completely benign. No evidence of obstruction on ultrasound. Patient can be discharged on oral diuretics. She was maintained on Bumex 2 mg daily. I will increase it to 2 mg b.i.d. post discharge. 2. Volume overload slowly improving. 3. Type 2 diabetes. 4. Benign hypertension with chronic kidney disease. PLAN: Okay to discharge patient. We can resume Bumex, but increase dose to 2 mg twice a day. MMODL / IJN: [id number] /
--- NOTE | 2020-12-09 16:06 | P.DS ---
Providers Date of admission: 12/04/20 22:01 Expected date of discharge: 12/09/20 Attending physician: Kandice Freed Consults: 12/04/20 22:01 Consult Physician Routine Consulting Provider: Elmira Felder Consult Reason/Comments: CKD, fluid retention Do you want consulting provider notified?: Yes Primary care physician: Reynaldo Crespo Hospital Course: Final diagnosis -Acute exacerbation CHF with diastolic dysfunction, most recent echo showing an EF of 55-60% -Acute on chronic kidney disease -Transaminitis; possible secondary to vascular congestion due to CHF, improving -Hyperglycemia/diabetes mellitus uncontrolled -Hypertension -Hyperlipidemia -Sleep apnea; uses CPAP at home -DVT prophylaxis -full code Discharge disposition Patient is being discharged in a stable condition with guarded prognosis to home. Patient will follow-up with Dr. Crespo in the outpatient setting upon discharge. Patient is to continue with oral antibiotics in the form of Keflex 500 mg 3 times daily for short course. Patient will also continue on Bumex 2 mg twice daily and recommend repeat labs to monitor kidney functions and electrolytes closely. Total time taken is greater than 35 minutes. Hospital course This is a 80-year-old female with a history of congestive heart failure came in with increasing dyspnea that has been ongoing over the last month and slowly worsening. Patient was being followed by nephrology along with cardiology. 2-D echo shows an EF of 55-60% with LV systolic function is normal. Patient states she was recently hospitalized at an outside facility for heart failure and chronic kidney disease. Patient was on Bumex and will continue and increase 2 milligrams twice daily per nephrology recommendations. Recommend repeat labs in a few days to monitor kidney functions along with electrolytes. Patient continues to have lower extremity edema although much improved and patient daughter is noticing some possible skin irritation on bilateral shins. Patient was evaluated and there is some chronic skin changes noted to the area with no break in skin, redness, or inflammation noted. Patient will be started on Keflex 500 mg 3 times daily for the next few days empirically. Patient is afebrile and does not have a white blood count. Instructed the patient to continue to elevate lower extremities while at rest and may use Kurt wraps from the toes up to the knees to assist with the swelling. Patient instructed to follow-up with primary care provider upon discharge. Currently no reports of chest pain, worsening shortness of breath, or palpitations. Patient is afebrile. No reports of nausea or vomiting and patient is tolerating diet. Patient will be discharged home today. On exam vital signs are stable. Cardio S1, S2 are muffled. Respiratory system shows diminished breath sounds at the bases with no wheezing or rhonchi noted. Abdomen is soft and obese, and nontender. Nervous system shows no focal deficits. Please refer to medication reconciliation sheet for a list of medications. Patient Condition at Discharge: Stable Plan - Discharge Summary Discharge Rx Participant: No New Discharge Prescriptions: New Cephalexin [Keflex] 500 mg PO Q8HR 7 Days #21 cap Acetaminophen Tab [Tylenol] 650 mg PO Q6HR PRN tab PRN Reason: Mild Pain Or Fever > 100.5 Continue Losartan [Cozaar] 50 mg PO DAILY Atorvastatin [Lipitor] 20 mg PO DAILY sitaGLIPtin [Januvia] 50 mg PO DAILY Aspirin [Adult Low Dose Aspirin EC] 81 mg PO DAILY Echinacea Root/Goldenseal Root [Echinac-Goldenseal 250-250 mg] 1 cap PO HS Folic Acid 0.8 mg PO HS Amitriptyline HCl 25 mg PO HS DULoxetine HCL [Cymbalta] 60 mg PO HS Albuterol Sulfate [Ventolin HFA] 2 puff INHALATION RT-Q6H PRN PRN Reason: Shortness Of Breath Glucos Sul 2Kcl/MSM/Chond/C/Mn [Glucosamine Chondroitin Cap] 1 cap PO HS Insulin NPH Hum/Reg Insulin Hm [Novolin 70-30 Flexpen] 48 units SQ HS Insulin NPH Hum/Reg Insulin Hm [Novolin 70-30 Flexpen] 66 units SQ DAILY Oxybutynin ER [Ditropan Xl] 15 mg PO DAILY Lsm-Vina-Talhh Acid [-U Capsule (formulary)] 1 cap PO HS Changed Bumetanide 2 mg PO BID 30 Days #120 tab Discharge Medication List Aspirin [Adult Low Dose Aspirin EC] 81 mg PO DAILY 07/28/16 [History] Atorvastatin [Lipitor] 20 mg PO DAILY 07/28/16 [History] Losartan [Cozaar] 50 mg PO DAILY 07/28/16 [History] sitaGLIPtin [Januvia] 50 mg PO DAILY 07/28/16 [History] Amitriptyline HCl 25 mg PO HS 10/02/20 [History] DULoxetine HCL [Cymbalta] 60 mg PO HS 10/02/20 [History] Echinacea Root/Goldenseal Root [Echinac-Goldenseal 250-250 mg] 1 cap PO HS 10/02/20 [History] Albuterol Sulfate [Ventolin HFA] 2 puff INHALATION RT-Q6H PRN 12/04/20 [History] Folic Acid 0.8 mg PO HS 12/04/20 [History] Glucos Sul 2Kcl/MSM/Chond/C/Mn [Glucosamine Chondroitin Cap] 1 cap PO HS 12/04/20 [History] Insulin NPH Hum/Reg Insulin Hm [Novolin 70-30 Flexpen] 48 units SQ HS 12/04/20 [History] Insulin NPH Hum/Reg Insulin Hm [Novolin 70-30 Flexpen] 66 units SQ DAILY 12/04/20 [History] Oxybutynin ER [Ditropan Xl] 15 mg PO DAILY 12/04/20 [History] Hei-Zfmn-Yckdd Acid [-U Capsule (formulary)] 1 cap PO HS 12/04/20 [History] Acetaminophen Tab [Tylenol] 650 mg PO Q6HR PRN tab 12/09/20 [Rx] Bumetanide 2 mg PO BID 30 Days #120 tab 12/09/20 [Rx] Cephalexin [Keflex] 500 mg PO Q8HR 7 Days #21 cap 12/09/20 [Rx] Follow up Appointment(s)/Referral(s): Reynaldo Crespo DO [Primary Care Provider] - 12/11/20 2:20 pm (You will see Angi) Ambulatory/Diagnostic Orders: Complete Blood Count w/diff [LAB.AMB] Time Frame: 2 Days, Location: None Selected Activity/Diet/Wound Care/Special Instructions: [facility] was referred for home care and they will evaluate you 24-48hrs after discharge. They can be reached at [phone] Activity Limited until follow-up Follow-up with primary care provider upon discharge Continue with antibiotics until finished Elevate lower extremities while at rest Continue with Bumex 2 mg twice a day Recommend repeat labs in 2-3 days to monitor electrolytes and kidney functions May use Jobst stockings or Kurt wraps to bilateral lower extremities from the toes up to the knees and elevate while at rest Do not scratch or itch at [place] area Discharge Disposition: HOME WITH HOME HEALTH SERVICES
== END 2020-12-09 17:09 | disposition home health service (06) | DRG 292 ==
LOC: EC 18:35 → 3SCARD 22:01 → 5NMEDONC 22:21
PROVIDERS: ADMIT Hospitalist; ATTEND Hospitalist
DX: I13.0 Hypertensive heart and chronic kidney disease with heart failure and stage 1 through stage 4 chronic kidney disease, or unspecified chronic kidney disease (principal); I50.32 Chronic diastolic (congestive) heart failure; N17.9 Acute kidney failure, unspecified; N18.4 Chronic kidney disease, stage 4 (severe); Z68.43 Body mass index [BMI] 50.0-59.9, adult; Z20.822 Contact with and (suspected) exposure to COVID-19; E11.22 Type 2 diabetes mellitus with diabetic chronic kidney disease; E11.65 Type 2 diabetes mellitus with hyperglycemia; E66.01 Morbid (severe) obesity due to excess calories; R74.01 Elevation of levels of liver transaminase levels; E78.5 Hyperlipidemia, unspecified; L98.9 Disorder of the skin and subcutaneous tissue, unspecified; G47.30 Sleep apnea, unspecified; R01.1 Cardiac murmur, unspecified; I27.20 Pulmonary hypertension, unspecified; I48.91 Unspecified atrial fibrillation; I87.2 Venous insufficiency (chronic) (peripheral); J42 Unspecified chronic bronchitis; J45.909 Unspecified asthma, uncomplicated; Z79.82 Long term (current) use of aspirin; Z79.899 Other long term (current) drug therapy; Z85.038 Personal history of other malignant neoplasm of large intestine; Z87.891 Personal history of nicotine dependence; Z79.4 Long term (current) use of insulin; Z87.440 Personal history of urinary (tract) infections; Z87.01 Personal history of pneumonia (recurrent); Z90.49 Acquired absence of other specified parts of digestive tract
CPT/HCPCS: 36415; 71046; 76770; 80048; 80053; 80076; 81001; 83735; 83880; 84484; 85025; 85610; 85730; 87635; 93005; 93306; 99285

== ENCOUNTER → 2021-02-05 | Outpatient (CLI) | payer MEDICARE ==
--- NOTE | 2021-02-05 15:57 | XR ---
EXAMINATION TYPE: XR chest 2V DATE OF EXAM: 02/05/2021 COMPARISON: 12/04/2020 TECHNIQUE: PA and lateral views submitted. HISTORY: Shortness of breath FINDINGS: The lungs are clear and there is no pneumothorax, pleural effusion, or focal pneumonia. Atheroscler otic change aorta. Heart size normal. No overt failure. Hypertrophic and degenerative change of the s pine. IMPRESSION: 1. No acute process.
== END | disposition home or self-care (01) ==
LOC: RADXRYALE 15:30
PROVIDERS: ATTEND Family Medicine
DX: R06.02 Shortness of breath (principal)
CPT/HCPCS: 71046

== ENCOUNTER → 2021-04-22 | Outpatient (CLI) | payer MEDICARE ==
--- NOTE | 2021-04-22 14:32 | US ---
EXAMINATION TYPE: US venous doppler duplex LE LT DATE OF EXAM: 04/22/2021 10:54 AM COMPARISON: NONE CLINICAL HISTORY: M79.662 Pain in left leg, I89.0 Lymphedema. SIDE PERFORMED: Left TECHNIQUE: The lower extremity deep venous system is examined utilizing real time linear array sonog julissa with graded compression, doppler sonography and color-flow sonography. VESSELS IMAGED: Common Femoral Vein Deep Femoral Vein Greater Saphenous Vein * Femoral Vein Popliteal Vein Small Saphenous Vein * Proximal Calf Veins (* superficial vessels) Morbidly obese patient, technically difficults study. Left Leg: Appears negative for DVT. Unable to scan in patients groin due to pain from infection. Preliminary results given to Dora at 's office. IMPRESSION: 1. Limited examination. 2. Within the visualized deep venous structures, no suspicious deep venous thrombosis is identified.
== END | disposition home or self-care (01) ==
LOC: RADUSWWP 10:17
PROVIDERS: ATTEND Family Medicine
DX: M79.662 Pain in left lower leg (principal)

== ENCOUNTER → 2021-09-04 | Outpatient (CLI) | payer MEDICARE ==
--- NOTE | 2021-09-04 12:15 | US ---
EXAMINATION TYPE: US venous doppler duplex LE RT DATE OF EXAM: 09/04/2021 12:01 PM COMPARISON: NONE CLINICAL HISTORY: R60.9 EDEMA, I89.0 LYMPHEDEMIA,I50.32 DIASTOLIC HEART FAILUR. pain, redness right lower leg SIDE PERFORMED: right TECHNIQUE: The lower extremity deep venous system is examined utilizing real time linear array sonog julissa with graded compression, doppler sonography and color-flow sonography. VESSELS IMAGED: Common Femoral Vein Deep Femoral Vein Greater Saphenous Vein * Femoral Vein Popliteal Vein Small Saphenous Vein * Proximal Calf Veins (* superficial vessels) Right Leg: *technical limitations due to patient's body habitus. no evidence of DVT as visualized IMPRESSION: No obvious DVT. Technically limited study.
== END | disposition home or self-care (01) ==
LOC: RADUSWWP 11:38
PROVIDERS: ATTEND Family Medicine
DX: I50.32 Chronic diastolic (congestive) heart failure (principal); I89.0 Lymphedema, not elsewhere classified; R60.9 Edema, unspecified

== ENCOUNTER 2021-10-13 10:01 | Emergency (ER) | payer MEDICARE ==
--- NOTE | 2021-10-13 11:10 | ED ---
General Adult HPI - General Chief complaint: Recheck/Abnormal Lab/Rx Stated complaint: Renal Failure Time Seen by Provider: 10/13/21 10:09 Source: patient, RN notes reviewed, old records reviewed Mode of arrival: ambulatory Limitations: no limitations - History of Present Illness Initial comments: 81-year-old female presenting for evaluation of abnormal outpatient lab testing. Patient was found to have an elevated BUN and creatinine. She had recent admission for CVA workup. She states that she's had a 12 pound weight gain in the last several days. She's had increased dyspnea. She's had minimal urine output. She currently is taking 2 mg of Bumex. She does have history of chronic kidney disease and follows with nephrology. - Related Data Home Medications Medication Instructions Recorded Confirmed Aspirin [Adult Low Dose Aspirin EC] 81 mg PO DAILY 07/28/16 10/05/21 Amitriptyline HCl 25 mg PO HS 10/02/20 10/05/21 DULoxetine HCL [Cymbalta] 60 mg PO DAILY 10/02/20 10/05/21 Oxybutynin ER [Ditropan Xl] 15 mg PO DAILY 12/04/20 10/05/21 Acetaminophen [Tylenol] 1,000 mg PO DAILY PRN 10/05/21 10/05/21 Albuterol Nebulized [Ventolin 2.5 mg INHALATION RT-TID 10/05/21 10/05/21 Nebulized] Allopurinol [Zyloprim] 100 mg PO DAILY 10/05/21 10/05/21 Atorvastatin [Lipitor] 40 mg PO HS 10/05/21 10/05/21 Bumetanide [BUMEX] 2 mg PO DAILY 10/05/21 10/05/21 L.acidoph,Paracasei, B.lactis 1 cap PO DAILY 10/05/21 10/05/21 [Probiotic] Ondansetron [Zofran] 4 mg PO Q8HR PRN 10/05/21 10/05/21 amLODIPine [Norvasc] 10 mg PO DAILY 10/05/21 10/05/21 Insulin NPH Hum/Reg Insulin Hm 36 units SQ HS 10/13/21 10/13/21 [Novolin 70-30 Flexpen] Insulin NPH Hum/Reg Insulin Hm 65 units SQ DAILY 10/13/21 10/13/21 [Novolin 70-30 Flexpen] SILVER sulfADIAZINE Cream 1 applic TOPICAL BID 10/13/21 10/13/21 [Silvadene 1% Cream] Sodium Bicarbonate Tab 650 mg PO BID 10/13/21 10/13/21 Previous Rx's Medication Instructions Recorded Clopidogrel [Plavix] 75 mg PO DAILY 30 Days #30 tab 10/08/21 Allergies Allergy/AdvReac Type Severity Reaction Status Date / Time Beta-Blockers AdvReac Hallucinati Verified 10/13/21 13:52 (Beta-Adrenergic Bloc ons glimepiride [From Amaryl] AdvReac Blood Verified 10/13/21 13:52 Sugar Drops Review of Systems ROS Statement: Those systems with pertinent positive or pertinent negative responses have been documented in the HPI. ROS Other: All systems not noted in ROS Statement are negative. Past Medical History Past Medical History: Atrial Fibrillation, Asthma, Cancer, Heart Failure, Diabetes Mellitus, GI Bleed, Hyperlipidemia, Hypertension, Memory Impairment, O steoarthritis (OA), Renal Disease, Skin Disorder, Sleep Apnea/CPAP/BIPAP Additional Past Medical History / Comment(s): Pt recently admitted to [facility] with R lower leg cellulitis, CKD stge IV and CHF. Other hx: Afib once associated with beta josafat, IDDM type II, CKD III-IV, "prone to" polynephritis, UTIs, colon cancer with resection, past pneumonias, chronic bronchitits, lower GI bleed, colon polyps, diverticular disease, small hiatal hernia, bilateral leg pain especially L leg, bilateral lower leg/pedal edema, gait dysturbance, vertigo, FALLS, LACEY-no device, "lump" present L lower leg, History of Any Multi-Drug Resistant Organisms: None Reported Past Surgical History: Appendectomy, Bowel Resection, Breast Surgery, Cholecystectomy Additional Past Surgical History / Comment(s): EGD, colonoscopies/polypectomies, L breast benign biopsy. Past Anesthesia/Blood Transfusion Reactions: Postoperative Nausea & Vomiting (PONV) Additional Past Anesthesia/Blood Transfusion Reaction / Comment(s): Family hx PONV as well. Past Psychological History: Anxiety, Depression Smoking Status: Former smoker Past Alcohol Use History: None Reported Past Drug Use History: None Reported - Past Family History Daughter(s) Family Medical History: Cancer Additional Family Medical History / Comment(s): Breast cancer. Sister(s) Family Medical History: Cancer Additional Family Medical History / Comment(s): 1 sister had breast cancer and 1 sister had uterine cancer. Mother Family Medical History: Diabetes Mellitus Additional Family Medical History / Comment(s): heart problems Father Additional Family Medical History / Comment(s): heart problems General Exam Limitations: no limitations General appearance: alert, in no apparent distress Head exam: Present: atraumatic, normocephalic Eye exam: Present: normal appearance, PERRL ENT exam: Present: mucous membranes dry Neck exam: Present: normal inspection Respiratory exam: Present: decreased breath sounds. Absent: respiratory distress Cardiovascular Exam: Present: regular rate, irregular rhythm GI/Abdominal exam: Present: soft. Absent: distended, tenderness, guarding Extremities exam: Present: pedal edema Neurological exam: Present: alert, oriented X3, CN II-XII intact. Absent: motor sensory deficit Psychiatric exam: Present: normal affect, normal mood Skin exam: Present: warm, dry, intact Course Vital Signs 10/13/21 10/13/21 10:04 11:20 Temperature 97.8 F 97.8 F Pulse Rate 72 71 Respiratory 18 20 Rate Blood Pressure 154/66 138/63 O2 Sat by Pulse 98 Oximetry EKG Findings - EKG Comments: EKG Findings:: EKG: Atrial fibrillation rate of 72, QRS duration 83, QTC 433 artifact in V2 and V5. Medical Decision Making - Medical Decision Making 81-year-old female presented for abnormal outpatient labs. Patient had recent hospital admission for TIA CVA. She had received contrast dye and had outpatient laboratory test performed yesterday which showed an elevated BUN and creatinine above baseline. She does have chronic kidney disease. Patient states he has bilateral edema. She is breathing room air with mild tachypnea. Her chest x-ray is clear without gross edema or effusion. She has a normal CBC, CMP shows a creatinine of 2.99 which is technically down trending. She has a normal BNP at 1000. Urinalysis unremarkable. She was scheduled for outpatient ultrasound of the kidneys and bladder this is performed and is unremarkable. I did discuss case with Dr. Felder who recommends holding Bumex for 2 days and had a repeat laboratory testing done in for or 5 days. Patient is informed of this. She is eager for discharge. - Lab Data Result diagrams: 10/13/21 11:18 10/13/21 11:18 Lab Results 10/13/21 10/13/21 10/13/21 Range/Units 11:18 11:18 11:18 WBC 6.9 (3.8-10.6) k/uL RBC 3.58 L (3.80-5.40) m/uL Hgb 11.6 (11.4-16.0) gm/dL Hct 35.9 (34.0-46.0) % MCV 100.2 H (80.0-100.0) fL MCH 32.4 (25.0-35.0) pg MCHC 32.3 (31.0-37.0) g/dL RDW 15.1 (11.5-15.5) % Plt Count 162 (150-450) k/uL MPV 7.4 Neutrophils % 73 % Lymphocytes % 15 % Monocytes % 6 % Eosinophils % 3 % Basophils % 1 % Neutrophils # 5.0 (1.3-7.7) k/uL Lymphocytes # 1.0 (1.0-4.8) k/uL Monocytes # 0.4 (0-1.0) k/uL Eosinophils # 0.2 (0-0.7) k/uL Basophils # 0.0 (0-0.2) k/uL Macrocytosis Slight PT 11.8 (9.0-12.0) sec INR 1.1 (<1.2) APTT 26.6 (22.0-30.0) sec Sodium (137-145) mmol/L Potassium (3.5-5.1) mmol/L Chloride (98-107) mmol/L Carbon Dioxide (22-30) mmol/L Anion Gap mmol/L BUN (7-17) mg/dL Creatinine (0.52-1.04) mg/dL Est GFR (CKD-EPI)AfAm (>60 ml/min/1.73 sqM) Est GFR (CKD-EPI)NonAf (>60 ml/min/1.73 sqM) Glucose (74-99) mg/dL Calcium (8.4-10.2) mg/dL Magnesium (1.6-2.3) mg/dL Total Bilirubin (0.2-1.3) mg/dL AST (14-36) U/L ALT (4-34) U/L Alkaline Phosphatase (38-126) U/L NT-Pro-B Natriuret Pep pg/mL Total Protein (6.3-8.2) g/dL Albumin (3.5-5.0) g/dL Urine Color Yellow Urine Appearance Clear (Clear) Urine pH 5.5 (5.0-8.0) Ur Specific [place] 1.013 (1.001-1.035) Urine Protein 1+ H (Negative) Urine Glucose (UA) Negative (Negative) Urine Ketones Negative (Negative) Urine Blood Trace H (Negative) Urine Nitrite Negative (Negative) Urine Bilirubin Negative (Negative) Urine Urobilinogen <2.0 (<2.0) mg/dL Ur Leukocyte Esterase Moderate H (Negative) Urine RBC 5 (0-5) /hpf Urine WBC 7 H (0-5) /hpf Ur Squamous Epith Cells 2 (0-4) /hpf Urine Mucus Rare H (None) /hpf 10/13/21 10/13/21 Range/Units 11:18 11:18 WBC (3.8-10.6) k/uL RBC (3.80-5.40) m/uL Hgb (11.4-16.0) gm/dL Hct (34.0-46.0) % MCV (80.0-100.0) fL MCH (25.0-35.0) pg MCHC (31.0-37.0) g/dL RDW (11.5-15.5) % Plt Count (150-450) k/uL MPV Neutrophils % % Lymphocytes % % Monocytes % % Eosinophils % % Basophils % % Neutrophils # (1.3-7.7) k/uL Lymphocytes # (1.0-4.8) k/uL Monocytes # (0-1.0) k/uL Eosinophils # (0-0.7) k/uL Basophils # (0-0.2) k/uL Macrocytosis PT (9.0-12.0) sec INR (<1.2) APTT (22.0-30.0) sec Sodium 134 L (137-145) mmol/L Potassium 4.9 (3.5-5.1) mmol/L Chloride 100 (98-107) mmol/L Carbon Dioxide 26 (22-30) mmol/L Anion Gap 8 mmol/L BUN 64 H (7-17) mg/dL Creatinine 2.99 H (0.52-1.04) mg/dL Est GFR (CKD-EPI)AfAm 16 (>60 ml/min/1.73 sqM) Est GFR (CKD-EPI)NonAf 14 (>60 ml/min/1.73 sqM) Glucose 120 H (74-99) mg/dL Calcium 8.7 (8.4-10.2) mg/dL Magnesium 2.2 (1.6-2.3) mg/dL Total Bilirubin 1.9 H (0.2-1.3) mg/dL AST 66 H (14-36) U/L ALT 29 (4-34) U/L Alkaline Phosphatase 168 H (38-126) U/L NT-Pro-B Natriuret Pep 1270 pg/mL Total Protein 8.0 (6.3-8.2) g/dL Albumin 3.6 (3.5-5.0) g/dL Urine Color Urine Appearance (Clear) Urine pH (5.0-8.0) Ur Specific [place] (1.001-1.035) Urine Protein (Negative) Urine Glucose (UA) (Negative) Urine Ketones (Negative) Urine Blood (Negative) Urine Nitrite (Negative) Urine Bilirubin (Negative) Urine Urobilinogen (<2.0) mg/dL Ur Leukocyte Esterase (Negative) Urine RBC (0-5) /hpf Urine WBC (0-5) /hpf Ur Squamous Epith Cells (0-4) /hpf Urine Mucus (None) /hpf Disposition Clinical Impression: Chronic kidney disease Disposition: ADMITTED IP TO THIS HOSP Condition: Fair Instructions (If sedation given, give patient instructions): Chronic Kidney Disease (ED) Additional Instructions: Please do not take your Bumex today or tomorrow. Please follow up for repeat laboratory testing in 4-6 days. Referrals: Reynaldo Nielson DO [Primary Care Provider] - 1-2 days Ben Allen DO [STAFF PHYSICIAN] - 1-2 days Time of Disposition: 14:09
[2021-10-13 11:28] VITALS: PULSE 71
[2021-10-13 11:38] LABS: Basophils % (A) 1 %; Eosinophils # (A) 0.2 k/uL (0-0.7); Eosinophils % (A) 3 %; HCT 35.9 % (34.0-46.0); HGB 11.6 gm/dL (11.4-16.0); Lymphocytes % (A) 15 %; MCH 32.4 pg (25.0-35.0); MCHC 32.3 g/dL (31.0-37.0); MCV 100.2 fL (80.0-100.0); Macrocytosis Slight; Mean Platelet Volume 7.4; Monocytes # (A) 0.4 k/uL (0-1.0); Monocytes % (A) 6 %; Neutrophils % (A) 73 %; Platelet Count 162 k/uL (150-450); RBC 3.58 m/uL (3.80-5.40); RDW 15.1 % (11.5-15.5); WBC 6.9 k/uL (3.8-10.6)
[2021-10-13 11:54] LABS: Albumin 3.6 g/dL (3.5-5.0); Calcium 8.7 mg/dL (8.4-10.2); Magnesium 2.2 mg/dL (1.6-2.3); Potassium 4.9 mmol/L (3.5-5.1); Total Bilirubin 1.9 mg/dL (0.2-1.3)
--- NOTE | 2021-10-13 11:54 | XR ---
EXAMINATION TYPE: XR chest 2V DATE OF EXAM: 10/13/2021 COMPARISON: 10/05/2021 TECHNIQUE: PA and lateral views submitted. HISTORY: Difficulty breathing FINDINGS: The lungs are clear and there is no pneumothorax, pleural effusion, or focal pneumonia. Heart size p rominent with atherosclerotic change aorta. Hypertrophic and degenerative change of the spine. Arthro nasreen of the shoulders. Diffuse osteopenia. There is a coarsened interstitium. IMPRESSION: 1. No acute process. Interstitium is coarsened may reflect chronic interstitial lung disease. Correla te clinically.
[2021-10-13 12:06] LABS: INR 1.1 (<1.2); Partial Thromboplastin Time 26.6 sec (22.0-30.0); Prothrombin Time 11.8 sec (9.0-12.0)
--- NOTE | 2021-10-13 12:15 | US ---
EXAMINATION TYPE: US kidneys/renal and bladder DATE OF EXAM: 10/13/2021 COMPARISON: CLINICAL HISTORY: [place]. EC patient. Patient has not voided recently. EXAM MEASUREMENTS: Right Kidney: 10.7 x 4.4 x 3.9 cm Left Kidney: 9.5 x 4.0 x 5.1 cm Suboptimal due to patient body habitus Right Kidney: No hydronephrosis or nephrolithiasis seen Left Kidney: Cortical thinning Bladder: distended, anechoic Bilateral Jets not seen Ascites visualized in right abdomen and pelvis IMPRESSION: 1. Limited exam demonstrates no obvious hydronephrosis or nephrolithiasis. 2. Small amount of ascites in the right abdomen.
[2021-10-13] MEDS ORDERED: SODIUM CHLORIDE 0.9% 500 ML 500 ML IV ONE (13:11)
[2021-10-13 13:51] LABS: Appearance,Urine Clear (Clear); Bilirubin,Urine Negative (Negative); Blood,Urine Trace (Negative); Color,Urine Yellow; Glucose,Urine (UA) Negative (Negative); Ketones,Urine Negative (Negative); Leukocyte Esterase,Urine Moderate (Negative); Mucus,Urine Rare /hpf; Nitrite,Urine Negative (Negative); PH, Urine 5.5 (5.0-8.0); Protein,Urine 1+ (Negative); RBC,Urine 5 /hpf (0-5); Specific Gravity,Urine 1.013 (1.001-1.035); Squamous Epithelial Cell,Urine 2 /hpf (0-4); Urobilinogen,Urine <2.0 mg/dL (<2.0); WBC,Urine 7 /hpf (0-5)
[2021-10-13 15:06] VITALS: BP 133/75; RESP 22; TEMP 98.3
== END 2021-10-13 15:05 | disposition other institution (70) ==
LOC: EC 10:01
DX: N18.9 Chronic kidney disease, unspecified (principal); J45.909 Unspecified asthma, uncomplicated; E11.9 Type 2 diabetes mellitus without complications; I10 Essential (primary) hypertension; Z87.891 Personal history of nicotine dependence; Z88.8 Allergy status to other drugs, medicaments and biological substances; Z88.6 Allergy status to analgesic agent
CPT/HCPCS: 36415; 71046; 76770; 80053; 81001; 83735; 83880; 85025; 85610; 85730; 93005; 96360; 99284

== ENCOUNTER 2021-10-19 14:08 | Emergency (ER) | payer MEDICARE ==
[2021-10-19 15:20] VITALS: BP 133/55; PULSE 73; RESP 20; TEMP 97.9
--- NOTE | 2021-10-19 15:54 | XR ---
EXAMINATION TYPE: XR chest 2V DATE OF EXAM: 10/19/2021 COMPARISON: 10/13/2021 HISTORY: Shortness of breath TECHNIQUE: Frontal and lateral views of the chest are obtained. FINDINGS: Scattered senescent parenchymal changes noted. Hyperinflation compatible with COPD. Patchy perihilar and basilar infiltrates noted. Correlate for underlying pneumonia. Heart size is stable. Mediastinal structures are stable and grossly unremarkable. No evidence for hilar prominence. Degenerative changes dorsal spine. IMPRESSION: 1. Patchy perihilar and basilar infiltrates noted. Correlate for underlying pneumonia.
== END 2021-10-19 21:40 | disposition left against medical advice (07) ==
LOC: EC 14:08
DX: Z53.21 Procedure and treatment not carried out due to patient leaving prior to being seen by health care provider (principal)
CPT/HCPCS: 71046; 99499

== ENCOUNTER → 2021-10-19 | Outpatient (CLI) | payer MEDICARE ==
--- NOTE | 2021-10-20 08:15 | XR ---
EXAMINATION TYPE: XR chest 2V DATE OF EXAM: 10/19/2021 COMPARISON: Chest x-ray 10/13/2021 HISTORY: Cough, shortness of breath TECHNIQUE: Frontal and lateral views of the chest are obtained. FINDINGS: Perihilar vascular indistinctness has progressed, there is airspace disease in the perihil ar location on the right. No evident pneumothorax or pleural effusion. Heart remains enlarged. Aorta is dense. No evident change in the bones. IMPRESSION: Correlate for pneumonia, edema
== END | disposition home or self-care (01) ==
LOC: RADXRYALE 11:46
PROVIDERS: ATTEND Physician Assistant
DX: R06.02 Shortness of breath (principal); R05.9 Cough, unspecified
CPT/HCPCS: 71046